=== PATIENT | male | born 1990 | race Caucasian/White ===

== ENCOUNTER 2017-01-23 12:31 | Emergency (ER) | payer SELFPAY ==
[2017-01-23] MEDS ORDERED: NORMAL SALINE 1000 ML 1,000 ML IV PRN (12:58)
[2017-01-23 13:05] LABS: ABSOLUTE EOSINOPHILS # (AUTO) 0.2 10^3/uL (0.0-0.6); ABSOLUTE LYMPHOCYTES (AUTO) 2.3 10^3/uL (0.5-4.7); ABSOLUTE MONOCYTES (AUTO) 0.7 10^3/uL (0.1-1.4); ABSOLUTE NEUT (AUTO) 3.4 10^3/uL (1.7-8.2); BASOPHILS % (AUTO) 0.5 % (0-2); EOSINOPHILS % (AUTO) 3.2 % (0-6); HEMATOCRIT 46.7 % (37.9-51.0); HEMOGLOBIN 16.2 g/dL (13.5-17.0); HGB HCT DIFFERENCE 1.9; LYMPHOCYTES % (AUTO) 34.5 % (13-45); MEAN CORPUSCULAR HEMOGLOBIN 33.1 pg (27.0-33.4); MEAN CORPUSCULAR HGB CONC 34.7 g/dL (32.0-36.0); MEAN CORPUSCULAR VOLUME 95 fl (80-97); MONOCYTES % (AUTO) 10.5 % (3-13); RED BLOOD COUNT 4.89 10^6/uL (4.35-5.55); RED CELL DISTRIBUTION WIDTH 14.8 % (11.5-14.0); SEGMENTED NEUTROPHILS % (AUTO) 51.3 % (42-78); WHITE BLOOD COUNT 6.6 10^3/uL (4.0-10.5)
[2017-01-23 13:25] LABS: ALANINE AMINOTRANSFERASE 243 U/L (21-72); ALBUMIN 5.3 g/dL (3.5-5.0); ALKALINE PHOSPHATASE 101 U/L (38-126); ANION GAP 13 (5-19); ASPARTATE AMINO TRANSFERASE 53 U/L (17-59); BILIRUBIN,DIRECT 0.4 mg/dL (0.0-0.4); BILIRUBIN,TOTAL 1.1 mg/dL (0.2-1.3); BLOOD UREA NITROGEN 10 mg/dL (7-20); CALCIUM 9.8 mg/dL (8.4-10.2); CARBON DIOXIDE 29 mmol/L (22-30); CHLORIDE 98 mmol/L (98-107); CREATININE RESULT 1.01 mg/dL (0.52-1.25); GLUCOSE 87 mg/dL (75-110); POTASSIUM 3.5 mmol/L (3.6-5.0); SODIUM 139.9 mmol/L (137-145); TOTAL PROTEIN 8.4 g/dL (6.3-8.2)
[2017-01-23 13:31] LABS: ALCOHOL < 10 mg/dL (NONE DETECTED)
[2017-01-23 13:38] LABS: LIPASE 340.7 U/L (23-300); MAGNESIUM 2.2 mg/dL (1.6-2.3)
[2017-01-23 13:51] LABS: APPEARANCE,URINE SLIGHTLY-CLOUDY; BILIRUBIN,URINE NEGATIVE (NEGATIVE); GLUCOSE, URINE NEGATIVE (NEGATIVE); KETONES,URINE NEGATIVE (NEGATIVE); LEUKOCYTE ESTERASE,URINE NEGATIVE (NEGATIVE); NITRITE,URINE NEGATIVE (NEGATIVE); PROTEIN,URINE NEGATIVE (NEGATIVE); URINE SPECIFIC GRAVITY 1.023
[2017-01-23 14:04] LABS: VALPROIC ACID < 10.0 ug/mL (50.0-120.0)
[2017-01-23 14:06] LABS: URINE BARBITURATES SCREEN NEGATIVE; URINE METHADONE SCREEN NEGATIVE; URINE OPIATES LOW UNCONFIRMED POSITIVE; URINE PHENCYCLIDINE SCREEN NEGATIVE
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
[2017-01-23] MEDS ORDERED: ONDANSETRON ODT 4 MG TAB (6 TAB/DSPK) PO PRN (15:46)
--- NOTE | 2017-01-23 15:51 | ER Document Report ---
ED General - General Chief Complaint: Altered Mental Status Stated Complaint: ALTERED MENTAL STATUS Time Seen by Provider: 01/23/17 12:57 - HPI Patient complains to provider of: Altered mental state Notes: Patient coming in for evaluation altered mental status. According EMS patient was found in a ditch for a possible drug overdose no intervention was given patient was transported to the ER. Upon my evaluation patient is awake however slurring his words no respiratory compromise. Patient does admit to using marijuana at 930 this morning. Patient denies any other issues. - Related Data Allergies/Adverse Reactions: No Known Allergies Allergy (Verified 01/23/17 14:01) Past Medical History - Social History Smoking Status: Current Every Day Smoker Frequency of alcohol use: Occasional Drug Abuse: Heroin, Methamphetamine Family History: Reviewed & Not Pertinent - Past Medical History Cardiac Medical History: Reports: Hx Hypertension Psychiatric Medical History: Reports: Hx Bipolar Disorder Past Surgical History: Reports: Hx Oral Surgery - Immunizations Hx Diphtheria, Pertussis, Tetanus Vaccination: Yes Review of Systems - Review of Systems -: Yes ROS unobtainable due to patient's medical condition - Difficult to obtain due to overdose Physical Exam - Vital signs Vitals: Resp Pulse Ox 18 95 01/23/17 12:42 01/23/17 12:42 Interpretation: Normal - General General appearance: Appears well, Alert - HEENT Head: Normocephalic. No: Atraumatic - Slight bruising to the left orthodox Eyes: Normal Pupils: PERRL - Respiratory Respiratory status: No respiratory distress Chest status: Nontender Breath sounds: Normal Chest palpation: Normal - Cardiovascular Rhythm: Regular Heart sounds: Normal auscultation Murmur: No - Abdominal Inspection: Normal Distension: No distension Bowel sounds: Normal Tenderness: Nontender Organomegaly: No organomegaly - Back Back: Normal, Nontender - Extremities General upper extremity: Normal inspection, Nontender, Normal color, Normal ROM , Normal temperature General lower extremity: Normal inspection, Nontender, Normal color, Normal ROM , Normal temperature, Normal weight bearing. No: Rosalva's sign - Neurological Neuro grossly intact: Yes Cognition: Confused Gris Coma Scale Eye Opening: Spontaneous Gris Coma Scale Verbal: Confused [place] Coma Scale Motor: Obeys Commands Gris Coma Scale Total: 14 Speech: Normal Motor strength normal: LUE, RUE, LLE, RLE Sensory: Normal - Psychological Associated symptoms: Normal affect, Normal mood - Skin Skin Temperature: Warm Skin Moisture: Dry Skin Color: Normal Course - Re-evaluation Re-evalutation: 01/23/17 15:49 After observation. Patient became agitated pulling out his IV. Family is now at bedside questioning about the patient patient denies lying in a ditch patient patient does admit to using heroin cocaine and amphetamines. Patient is laboratory studies do show signs of possible slight dehydration positive for multiple illicit substances including opiates and benzodiazepines marijuana cocaine and indeterminate for amphetamines. Patient does admit to taking meth. Patient was observed family at bedside after. Also patient requesting ahead CT of the patient has slight bruising to the left side of the head. This was performed CT scan was normal. Discussed with family agrees take patient home. Overdose instructions were given to the family members along with drug rehab options 01/23/17 15:51 - Vital Signs Vital signs: Temp Pulse Resp BP Pulse Ox 97.8 F 76 18 128/80 H 100 01/23/17 13:40 01/23/17 13:40 01/23/17 15:01 01/23/17 15:01 01/23/17 15:01 - Laboratory Result Diagrams: 01/23/17 12:45 01/23/17 12:45 Laboratory results interpreted by me: 01/23/17 01/23/17 01/23/17 12:45 12:45 12:45 RDW 14.8 H Potassium 3.5 L ALT 243 H Ammonia Total Protein 8.4 H Albumin 5.3 H Lipase 340.7 H Urine Urobilinogen Salicylates < 1.0 L Acetaminophen < 10 L Valproic Acid < 10.0 L 01/23/17 01/23/17 13:20 13:55 RDW Potassium ALT Ammonia < 8.7 L Total Protein Albumin Lipase Urine Urobilinogen 2.0 H Salicylates Acetaminophen Valproic Acid Critical Care Note - Critical Care Note Total time excluding time spent on procedures (mins): 35 Comments: Multiple evaluations for overdose Discharge - Discharge Clinical Impression: Altered mental status resolved, Polysubstance abuse Condition: Good Disposition: HOME, SELF-CARE Instructions: Instructions for Home Care Following a Drug Overdose ([facility]) Additional Instructions: He presented to the ER today for altered mental status. Your mental status has improved. I am concerned that your drug screen came back positive for multiple illicit drugs. Highly recommend that she look into drug rehab. Please drink plenty water Take Zofran as recommended
[2017-01-23 16:01] VITALS: BP 143/82
--- NOTE | 2017-01-24 10:37 | EKG REPORT ---
SEVERITY:- BORDERLINE ECG - SINUS RHYTHM BORDERLINE PROLONGED QT INTERVAL : Confirmed by: Monika Silverman 24-Jan-2017 10:36:42
--- NOTE | 2017-01-24 10:37 | EKG REPORT ---
SEVERITY:- NORMAL ECG - SINUS RHYTHM : Confirmed by: Monika Silverman 24-Jan-2017 10:36:49
== END 2017-01-23 16:01 | disposition home or self-care (01) ==
LOC: ER 12:31
DX: R41.82 Altered mental status, unspecified (principal); S00.93XA Contusion of unspecified part of head, initial encounter; F19.10 Other psychoactive substance abuse, uncomplicated; F17.200 Nicotine dependence, unspecified, uncomplicated; X58.XXXA Exposure to other specified factors, initial encounter; I10 Essential (primary) hypertension
CPT/HCPCS: 93005; 99291; 96360; 36415; 80307 ×4; 82140; 83690; 83735; 85025; 80053; 81001; 80164; 70450; 93010; J7030

== ENCOUNTER 2017-01-24 00:04 | Inpatient (IN) | payer SELFPAY ==
--- NOTE | 2017-01-24 00:52 | ER Document Report ---
ED Psych Disorder / Suicide - General Mode of Arrival: Ambulatory Information source: Patient TRAVEL OUTSIDE OF THE [place] IN LAST 30 DAYS: No - HPI Onset: Just prior to arrival Similar symptoms previously: Yes Recently seen / treated by doctor: Yes <VASQUEZ DAVIS - Last Filed: 01/24/17 04:59> <RUBÉN NIEVES - Last Filed: 01/29/17 12:21> - General Chief Complaint: Psych Problem Stated Complaint: PSYCH EVALUATION Time Seen by Provider: 01/24/17 00:50 Notes: Patient is a 26 year old male presenting to the ED for depression, SI, and paranoia. Patient presents with his step-mother who states the patient has told his mother he does not have his medications and he has been suicidal. Mother also noticed the patient has been drinking EtOH and has been abusing other substances such as marijuana, cocain, heroine, benzodiazepines, methamphetamines , and opiates. Patient has had lots of loss in his life including a , child , and having his other children removed from custody because of his mental state. Patient is supposed to be taking xanex, adderall, and others for his anxiety and depression. Patient was seen in this facility yesterday because he was brought in via EMS after being found in the ditch. Patient's toxicology tested positive for multiple substances at this visit as well. (VASQUEZ DAVIS) - Related Data Allergies/Adverse Reactions: No Known Allergies Allergy (Verified 01/23/17 14:01) Home Medications: Current Home Medications Dextroamphetamine/Amphetamine [Adderall 30 mg Tablet] 30 mg PO BID 01/24/17 [ History] Divalproex Sodium [Depakote ER 500 mg Tab.sr] 1,000 mg PO QHS 01/24/17 [History] Quetiapine Fumarate [Seroquel] 200 mg PO QHS 01/24/17 [History] Past Medical History - General Information source: Patient - Social History Smoking Status: Current Every Day Smoker Chew tobacco use (# tins/day): No Frequency of alcohol use: Heavy Drug Abuse: Heroin, Methamphetamine Family History: None Patient has suicidal ideation: No Patient has homicidal ideation: No - Past Medical History Cardiac Medical History: Reports: Hx Hypertension Psychiatric Medical History: Reports: Hx Bipolar Disorder Past Surgical History: Reports: Hx Oral Surgery - Immunizations Hx Diphtheria, Pertussis, Tetanus Vaccination: Yes <VASQUEZ DAVIS - Last Filed: 01/24/17 04:59> Review of Systems - Review of Systems Constitutional: No symptoms reported EENT: No symptoms reported Cardiovascular: No symptoms reported Respiratory: No symptoms reported Gastrointestinal: No symptoms reported Genitourinary: No symptoms reported Male Genitourinary: No symptoms reported Musculoskeletal: No symptoms reported Skin: No symptoms reported Hematologic/Lymphatic: No symptoms reported Neurological/Psychological: See HPI, Depression, Suicidal ideation -: Yes All other systems reviewed and negative <VASQUEZ DAVIS - Last Filed: 01/24/17 04:59> Physical Exam - Vital signs Interpretation: Normal <VASQUEZ DAVIS - Last Filed: 01/24/17 04:59> <JUAN CARLOS NIEVESMY - Last Filed: 01/29/17 12:21> - Vital signs Vitals: Temp Pulse Resp BP Pulse Ox 97.4 F 98 18 138/80 H 98 01/24/17 00:14 01/24/17 00:14 01/24/17 00:14 01/24/17 00:14 01/24/17 00:14 - Notes Notes: GENERAL: Somnolent and drowsy. Difficult to arouse except when he is sternal rubbed. Mild distress. HEAD: Normocephalic, atraumatic. EYES: Appear normal. Pupils equal, round, and reactive to light. ENT: Moist mucus membranes, tongue midline. NECK: Full range of motion. Supple. Trachea midline. LUNGS: Clear to auscultation bilaterally, no wheezes, rales, or rhonchi. No respiratory distress. HEART: Regular rate and rhythm. No murmurs, gallops, or rubs. ABDOMEN: Soft, non-tender. Non-distended. Normal bowel sounds. EXTREMITIES: Moves all 4 extremities spontaneously. Normal strength. No edema. NEUROLOGICAL: Alert and oriented x3. Mumbled speech. No focal neurological deficits. GSC 15. PSYCH: Normal affect, normal mood. SKIN: Warm, dry, normal turgor. No rashes or lesions noted. (VASQUEZ DAVIS) Course - Laboratory Result Diagrams: 01/24/17 00:40 01/24/17 00:40 - Consults Dr. Lord Time consulted: 04:00 <OLAYINKABRIENVASQUEZ - Last Filed: 01/24/17 04:59> - Laboratory Result Diagrams: 01/25/17 04:40 01/25/17 04:40 <RUBÉN NIEVES - Last Filed: 01/29/17 12:21> - Re-evaluation Re-evalutation: 01/24/17 04:17 Patient presents emergency department with altered mental status paranoia and suicidal ideation. Patient was seen and evaluated yesterday after being found in a ditch. He was sent home after family came workup was negative and he was deemed substance abuser. He moved from [place] recently but grew up in this area. According to the family members his at childbirth in 2012, child 02/2014, dog 02/2015, and his children were taken away from him in 2015 due to mental illness. He is a substance abuser with methamphetamines opiates and heroin as well as cocaine. Tonight his family states that they have never seen him like this before he did not make any sense could not wake him up and he called his mother and said he was hopeless and helpless and wanted to kill himself. On examination the patient is sleeping had to arouse him with sternal rub to keep him awake multiple times. He is satting well maintaining his own airway would converse with us temporarily. Narcan did not change his mental status. Patient underwent CT of the head and acute medical workup. CT of the head was negative reassessed multiple times patient sleeping unable to sternal rub maintaining his own airway and his O2 sat 97% on room air. Labs show no white count elevation H&H are stable mildly low potassium at 3.2 which is replaced. Glucose is 70 given an amp of D50 mildly elevated ALT at 187 urinalysis negative for infection but positive for opiates and benzodiazepines cocaine and marijuana. He is stable cardiac enzymes are negative. Not currently requiring acute intubation. Patient will need to be admitted to the ICU and placed on IVC. (RUBÉN NIEVES) - Vital Signs Vital signs: Temp Pulse Resp BP Pulse Ox 97.4 F 61 18 121/78 95 01/25/17 14:47 01/25/17 14:47 01/25/17 14:47 01/25/17 14:47 01/25/17 14:47 - Laboratory Laboratory results interpreted by me: 01/24/17 01/24/17 01/24/17 00:40 00:40 02:05 RBC 4.34 L RDW 14.6 H Seg Neutrophils % 37.9 L Lymphocytes % 45.7 H Potassium 3.2 L Carbon Dioxide 32 H Glucose 70 L ALT 187 H Urine Urobilinogen 4.0 H Salicylates < 1.0 L Acetaminophen < 10 L - Consults Dr. Lord Reason for consultation: 01/24/17 04:[address] Lord, he will call back. 01/24/17 04:[address] Lord, he accepts the patient for admission to [facility]. (VASQUEZ DAVIS) Critical Care Note - Critical Care Note Total time excluding time spent on procedures (mins): 60 <RUBÉN NIEVES - Last Filed: 01/29/17 12:21> Discharge <VASQUEZ DAVIS - Last Filed: 01/24/17 04:59> - Discharge Unit Admitted: ICU <RUBÉN NIEVES - Last Filed: 01/29/17 12:21> - Discharge Clinical Impression: polypharmacy substance abuse, Suicidal ideation Altered mental status Qualifiers: Altered mental status type: unspecified Qualified Code(s): R41.82 - Altered mental status, unspecified Condition: Stable Disposition: ADMITTED INPATIENT Scribe Attestation: 01/24/17 04:17 I personally performed the services described in the documentation reviewed the documentation recorded by my scribe in my presence and it accurately and completely records my words and actions (RUBÉN NIEVES) Scribe Documentation - Scribe Written by Scribe:: Moira Wild 01/24/17 4:56 acting as scribe for :: Gasper <VASQUEZ DAVIS - Last Filed: 01/24/17 04:59>
[2017-01-24 01:04] LABS: ABSOLUTE EOSINOPHILS # (AUTO) 0.3 10^3/uL (0.0-0.6); ABSOLUTE LYMPHOCYTES (AUTO) 2.6 10^3/uL (0.5-4.7); ABSOLUTE MONOCYTES (AUTO) 0.6 10^3/uL (0.1-1.4); ABSOLUTE NEUT (AUTO) 2.2 10^3/uL (1.7-8.2); BASOPHILS % (AUTO) 0.7 % (0-2); EOSINOPHILS % (AUTO) 4.8 % (0-6); HEMATOCRIT 41.4 % (37.9-51.0); HEMOGLOBIN 14.5 g/dL (13.5-17.0); HGB HCT DIFFERENCE 2.1; LYMPHOCYTES % (AUTO) 45.7 % (13-45); MEAN CORPUSCULAR HEMOGLOBIN 33.4 pg (27.0-33.4); MEAN CORPUSCULAR VOLUME 95 fl (80-97); MONOCYTES % (AUTO) 10.9 % (3-13); RED BLOOD COUNT 4.34 10^6/uL (4.35-5.55); RED CELL DISTRIBUTION WIDTH 14.6 % (11.5-14.0); SEGMENTED NEUTROPHILS % (AUTO) 37.9 % (42-78); WHITE BLOOD COUNT 5.8 10^3/uL (4.0-10.5)
[2017-01-24] MEDS ORDERED: NALOXONE HCL INJ 2 MG/2 ML DISP.SYRIN ONE (01:11)
[2017-01-24 01:28] LABS: ALANINE AMINOTRANSFERASE 187 U/L (21-72); ALBUMIN 4.1 g/dL (3.5-5.0); ALKALINE PHOSPHATASE 77 U/L (38-126); ANION GAP 8 (5-19); ASPARTATE AMINO TRANSFERASE 56 U/L (17-59); BILIRUBIN,DIRECT 0.4 mg/dL (0.0-0.4); BILIRUBIN,TOTAL 1.1 mg/dL (0.2-1.3); BLOOD UREA NITROGEN 9 mg/dL (7-20); CALCIUM 8.9 mg/dL (8.4-10.2); CARBON DIOXIDE 32 mmol/L (22-30); CHLORIDE 101 mmol/L (98-107); GLUCOSE 70 mg/dL (75-110); POTASSIUM 3.2 mmol/L (3.6-5.0); TOTAL PROTEIN 6.7 g/dL (6.3-8.2)
[2017-01-24 01:33] LABS: ALCOHOL < 10 mg/dL (NONE DETECTED)
[2017-01-24] MEDS ORDERED: NALOXONE HCL INJ 2 MG/2 ML DISP.SYRIN IV ONE (01:34)
--- NOTE | 2017-01-24 02:12 | RADIOLOGY REPORT (SQ) ---
EXAM DESCRIPTION: CT HEAD WITHOUT COMPLETED DATE/TIME: 01/24/2017 1:48 am REASON FOR STUDY: ams COMPARISON: None. 01/23/2017. TECHNIQUE: Axial images acquired through the brain without intravenous contrast. Images reviewed wi th bone, brain and subdural windows. Images stored on PACS. All CT scanners at this facility use dose modulation, iterative reconstruction, and/or weight based d osing when appropriate to reduce radiation dose to as low as reasonably achievable (ALARA). [facility]: Dose Right [facility]: CareDose [facility]: Dose Right [facility]: Teradose 4D [facility]: Smart [employer] RADIATION DOSE: Up-to-date CT equipment and radiation dose reduction techniques were employed. CTDIv ol: 55.2 - 55.3 mGy. DLP: 2080 mGy-cm. mGy. LIMITATIONS: None. FINDINGS: VENTRICLES: Normal size and contour. CEREBRUM: No masses. No hemorrhage. No midline shift. Normal mays/white matter differentiation. N o evidence for acute infarction. CEREBELLUM: No masses. No hemorrhage. No alteration of density. No evidence for acute infarction. EXTRAAXIAL SPACES: No fluid collections. No masses. ORBITS AND GLOBE: No intra- or extraconal masses. Normal contour of globe without masses. CALVARIUM: No fracture. PARANASAL SINUSES: 2.0 cm left rib maxillary retention cyst -mucocele. SOFT TISSUES: No mass or hematoma. OTHER: No other significant finding. IMPRESSION: No acute findings. TECHNICAL DOCUMENTATION: JOB ID: [id number] Quality ID # [id number]: Final reports with documentation of one or more dose reduction techniques (e.g., Au tomated exposure control, adjustment of the mA and/or kV according to patient size, use of iterative reconstruction technique) 2010 [employer]- All Rights Reserved
[2017-01-24 02:23] LABS: APPEARANCE,URINE CLEAR; BILIRUBIN,URINE NEGATIVE (NEGATIVE); GLUCOSE, URINE NEGATIVE (NEGATIVE); KETONES,URINE NEGATIVE (NEGATIVE); LEUKOCYTE ESTERASE,URINE NEGATIVE (NEGATIVE); NITRITE,URINE NEGATIVE (NEGATIVE); PROTEIN,URINE NEGATIVE (NEGATIVE)
[2017-01-24 02:38] LABS: URINE BARBITURATES SCREEN NEGATIVE; URINE METHADONE SCREEN NEGATIVE; URINE OPIATES LOW UNCONFIRMED POSITIVE; URINE PHENCYCLIDINE SCREEN NEGATIVE
[2017-01-24] MEDS ORDERED: DEXTROSE 50%-WATER 25 GM/50 ML DISP.SYRIN IV ONE (03:15)
[2017-01-24 05:27] LABS: ADD ON TESTING BLD IN LAB ACKNOWLEDGE
[2017-01-24] MEDS ORDERED: DEXTROSE 50%-WATER 25 GM/50 ML DISP.SYRIN IV PRN ×2 (05:39)
[2017-01-24] MEDS ORDERED: DEXTROSE 40% GEL 15 GM TUBE PO PRN ×2 (05:39)
[2017-01-24] MEDS ORDERED: ACETAMINOPHEN 650 MG SUPP.RECT PR PRN (05:39)
[2017-01-24] MEDS ORDERED: GLUCAGON,HUMAN RECOMB 1 MG INJ SUBCUT PRN (05:39)
[2017-01-24] MEDS ORDERED: THIAMINE HCL 100 MG in NORMAL SALINE 50 ML IV ONE (05:39)
[2017-01-24] MEDS ORDERED: PROMETHAZINE HCL 25 MG SUPP.RECT PR PRN (05:44)
[2017-01-24] MEDS: POTASSI CL 20 MEQ/50 ML RIDER 50 ML IV SCH ×2 (05:45→06:37)
[2017-01-24 06:04] LABS: VENOUS BLOOD BASE EXCESS 3.7 mmol/L; VENOUS BLOOD PCO2 63.3 mmHg (35-63); VENOUS BLOOD PH 7.32 (7.30-7.42)
--- NOTE | 2017-01-24 06:08 | PDOC H&P ---
History of Present Illness Admission Date/PCP: 01/24/17 05:04 Primary care provider none Patient complains of: Suicidal ideation History of Present Illness: MARCUS ROGERS JR is a 26 year old male with reported underlying bipolar disorder , seen in the emergency room approximately 24 hours earlier after being found by EMS in a ditch, discharged home with family, brought back to the emergency room by stepmother after phoning his mother, who lives out of state, stating that he felt like killing himself. Patient has been discussed with emergency room physician who evaluated the patient. Patient is quite somnolent, although maintaining airway well, never completely awakening to sternal rub or trapezius pinch, and is able to provide no history whatsoever in terms of acute or chronic events, review of systems, personal habits, family history, etc. No friends or family are present. No old inpatient records available for review. Extensive documentation by emergency room physician is reviewed. Patient reportedly abusing multiple substances, including alcohol, marijuana, cocaine, heroin, methamphetamines, opiates, and benzodiazepine. . Dictation via voice recognition software. Laboratory results are listed in [employer] and are reviewed. X-ray summary results are listed below, with full report(s) reviewed. . EKG reviewed and compared to prior tracing from the day previous. Social history/personal habits: See history and present illness. No further information available this point in time. No known drug allergies. Home medications initially autopopulated into [facility] may not accurately reflect patient's true medications, dosages, and/or frequencies. technical clerk to reconcile medications. Unfortunately, patient not able to provide any information related to medications/dosages/frequencies. REVIEW OF SYSTEMS: See history and present illness. No further information available this point in time. PHYSICAL EXAMINATION: Patient listed is 5 feet tall, but he appears taller than this. Order has been written to please repeat his height and weight as soon as possible. 88.8 kg. Blood pressure 110/56. Pulse 74 and regular. 100% saturation on room air. Respirations are 16 and unlabored. Temperature 97.6. Well-nourished well-developed male quite somnolent, although maintaining airway well. Withdraws to pain with sternal rub and trapezius pinch. Does not completely awaken to these maneuvers. Skin is warm and dry. No grossly obvious evidence of rash in areas of skin examined. No subcutaneous nodules palpated. Tattoos, right upper extremity. ENT: Hearing cannot be adequately evaluated due to his current status. No acharya sign. Eyes: No scleral icterus. Pupils equal and reactive to light at 5 mm. [place] conjunctivae. No raccoon eyes. Neck is nontender to palpation. Midline trachea. No palpable thyroid nodule mass enlargement or tenderness. Lymphatic: No palpable cervical or clavicular nodes. Neck and lymphatic exams limited by patient body habitus. Psychiatric: Cannot be adequately evaluated due to his current status. Lungs: Auscultation reveals clear and equal breath sounds bilaterally. No use of accessory respiratory muscles. Cardiovascular: Heart regular rate and rhythm, without gallop murmur or rub. No carotid or abdominal aortic bruits. No ankle or pedal edema. Palpable dorsalis pedis pulses. Abdomen:soft slightly distended nontender with positive bowel sounds. Unable to adequately evaluate abdomen for masses or organomegaly due to distention. Extremities: Feet are warm and dry. No calf tenderness to compression. No grossly obvious visual evidence of upper or lower extremity swelling. Gentle manipulation of lower extremities fails to reveal any obvious evidence of injury or instability to knees hips or ankles. Neurologic: Patellar reflexes absent. Absent Babinski. Light touch cannot be adequately evaluated due to his current status.. No rigidity. No nystagmus. Gris Coma Scale of 6, with eyes and verbal response 1 each, and motor 4. Past Medical History Past Medical History: Patient unable to provide any information at this time. Information from hospital records. Cardiac Medical History: Reports: Hypertension Psychiatric Medical History: Reports: Bipolar Disorder Past Surgical History Past Surgical History: Patient unable to provide any information at this point in time. Information from hospital records. Social History Information Source: Emergency Med Personnel, ON LICENSE OF [facility] Records Smoking Status: Current Every Day Smoker Frequency of Alcohol Use: Heavy - Reported recent heavy use Hx Recreational Drug Use: Yes - Benzodiazepine Drugs: Cocaine, Heroin, Marijuana, Other - Methamphetamines - Advance Directive Resuscitation Status: Full Code Surrogate healthcare decision maker:: Uncertain at this point in time. Family History Family History: None Parental Family History Reviewed: No - Patient unable to provide any information. Children Family History Reviewed: No - Patient unable to provide any information. Sibling(s) Family History Reviewed.: No - Patient unable to provide any information. Medication/Allergy Home Medications: Dextroamphetamine/Amphetamine [Adderall 30 mg Tablet] 30 mg PO BID 08/09/17 Divalproex Sodium [Depakote ER 500 mg Tab.sr] 1,000 mg PO QHS 01/24/17 Quetiapine Fumarate [Seroquel] 200 mg PO QHS 01/24/17 Allergies/Adverse Reactions: No Known Allergies Allergy (Verified 01/23/17 14:01) Physical Exam Vital Signs: Temp Pulse Resp BP Pulse Ox 97.4 F 98 18 138/80 H 98 01/24/17 00:14 01/24/17 00:14 01/24/17 00:14 01/24/17 00:14 01/24/17 00:14 Results Impressions: Head CT 01/24/17 01:33 IMPRESSION: No acute findings. Assessment & Plan - Diagnosis (1) Acute encephalopathy Is this a current diagnosis for this admission?: YesPlan: Should clear with time and treatment. (2) DVT prophylaxis Is this a current diagnosis for this admission?: Yes (3) Hypokalemia Is this a current diagnosis for this admission?: YesPlan: Potassium supplement, with follow-up chemistry. (4) Polysubstance abuse Is this a current diagnosis for this admission?: YesPlan: Intensive care unit admission. Seizure precautions. Supportive care. Knee high SCDs for DVT prophylaxis, along with subcutaneous Lovenox. Time spent in evaluation and management of patient: 64 critical-care minutes. (5) Suicidal ideation Is this a current diagnosis for this admission?: YesPlan: Psychiatric consult. IVC papers have been drawn up by emergency room physician. Suicide precautions. - Time Critical Time spent with patient: 35 or more minutes - Inpatient Certification Based on my medical assessment, after consideration of the patient's comorbidities, presenting symptoms, or acuity I expect that the services needed warrant INPATIENT care.: Yes I certify that my determination is in accordance with my understanding of Medicare's requirements for reasonable and necessary INPATIENT services [42 CFR 412.3e].: Yes Medical Necessity: Significant Comorbidiites Make Outpatient Treatment Too Risky , Need Close Monitoring Due to Risk of Patient Decompensation, Need For IV Fluids, Need For Continuous Telemetry Monitoring, Risk of Complication if Not Cared For in Hospital, Risk of Diagnosis Which Will Require Inpatient Eval/Care/ Monitoring Post Hospital Care: D/C or Transfer Summary
[2017-01-24 06:40] LABS: ANION GAP 7 (5-19); BLOOD UREA NITROGEN 11 mg/dL (7-20); CARBON DIOXIDE 30 mmol/L (22-30); CHLORIDE 103 mmol/L (98-107); CREATINE KINASE 274 U/L (55-170); CREATININE RESULT 0.97 mg/dL (0.52-1.25); GLUCOSE 96 mg/dL (75-110); POTASSIUM 4.1 mmol/L (3.6-5.0); SODIUM 140.2 mmol/L (137-145)
[2017-01-24 06:52] LABS: CREATINE KINASE MB 2.43 ng/mL (<4.55)
[2017-01-24 06:53] LABS: TROPONIN I < 0.012 ng/mL
--- NOTE | 2017-01-24 10:37 | EKG REPORT ---
SEVERITY:- NORMAL ECG - SINUS RHYTHM : Confirmed by: Monika Silverman 24-Jan-2017 10:36:21
[2017-01-24] MEDS: THIAMINE HCL 100 MG TABLET PO SCH (12:12)
[2017-01-24] MEDS: FAMOTIDINE INJ/PF 20 MG/2 ML SDV IV SCH ×2 (12:15→21:46)
[2017-01-24] MEDS: ENOXAPARIN SODIUM INJ 40 MG/0.4 ML DISP.SYRIN SUBCUT SCH (12:17)
[2017-01-24] MEDS: NORMAL SALINE 1000 ML 1,000 ML IV PRN ×2 (14:02→21:47)
--- NOTE | 2017-01-24 14:50 | PSYCHOLOGICAL NOTE ---
Psych Note - Psych Note Psych Note: Patient is a 26 year old male who has been admitted to [facility] for encephalopathy. Note, patient had 2 episodes in which he presented to the ER yesterday, the first he was found unresponsive in a ditch. Patient was determined to be under the influence of multiple drugs upon arrival , per his toxicology, to include opiates, cocaine, benzodiazepines, and marijuana. Patient was discharged once A&O with noncritical labs and vitals. Patient reportedly returned to his place of residence via his stepmother, and later returned after he reported to his mother suicidal ideations. It was during this second episode that the patient was admitted to ICU. Patient at the time of this consultation, was mostly noncommunicative and will be evaluated later. Stepmother, Lorene Beard states the patient only moved to [place] 2- 3 weeks ago, from [place] of state. She states he has suffered tremendous loss, and she and her (patient's father) were unaware of the extent of his drug abuse. She states the patient's during childbirth, and he fell into depression and reportedly started using drugs. She reports CPS removed his child as a result. Stepmother reports she also found out that he friend 2 weeks prior of an overdose. She reports she was called to the hospital yesterday after EMS brought him in, and provided the patient transportation home. She states she later received contact that the patient was experiencing suicidal ideations. She reports She provided patient's father's number, Brice . Will attempt to evaluate at a later time. Thank you kindly for this consultation. Will track.
--- NOTE | 2017-01-24 15:03 | PDOC PROGRESS REPORT ---
Subjective Progress Note for:: 01/24/17 Subjective:: Patient is alert and responsive at the time of my visit. He denies suicidal ideation at this time. He denies ever having suicidal ideation even though his family member states that he expressed suicidal thoughts prior to presentation. Physical Exam Vital Signs: Temp Pulse Resp BP Pulse Ox 97.2 F 74 14 111/68 98 01/24/17 12:00 01/24/17 14:00 01/24/17 14:00 01/24/17 14:00 01/24/17 14:00 Intake & Output 01/23/17 01/24/17 01/25/17 06:59 06:59 06:59 Output Total 875 Balance -875 GENERAL: No acute distress HEENT: Conjunctiva clear, nonicteric, moist mucous membranes, no JVD, midline trachea RESPIRATORY: Clear to auscultation bilaterally, no wheezes, no rhonchi CARDIAC: Regular rate and rhythm, no murmurs/gallops/rubs ABDOMEN: Soft, nondistended, nontender, positive bowel sounds, no rebound, no guarding EXTREMETIES: No edema, cyanosis, clubbing NEUROLOGIC: Alert, oriented to person/place/time, CN's grossly intact, no focal deficits SKIN: No rash, wounds PSYCH: Normal mood, normal affect Results Laboratory Results: 01/24/17 06:10 01/24/17 01/24/17 01/24/17 05:57 06:10 06:10 VBG pH 7.32 VBG pCO2 63.3 H VBG HCO3 32.0 VBG Base Excess 3.7 Sodium 140.2 Potassium 4.1 Chloride 103 Carbon Dioxide 30 Anion Gap 7 BUN 11 Creatinine 0.97 Est GFR ( Amer) > 60 Est GFR (Non-Af Amer) > 60 Glucose 96 Calcium 9.0 Ammonia < 8.7 L 01/24/17 01/24/17 06:10 06:10 Creatine Kinase 274 H CK-MB (CK-2) 2.43 Troponin I < 0.012 Impressions: Head CT 01/24/17 01:33 IMPRESSION: No acute findings. Assessment & Plan - Diagnosis (1) Acute encephalopathy Is this a current diagnosis for this admission?: YesPlan: Resolved. Likely secondary to polysubstance ingestion/overdose. (2) Polysubstance abuse Is this a current diagnosis for this admission?: Yes (3) Suicidal ideation Is this a current diagnosis for this admission?: YesPlan: Continue involuntary commitment. Psychology to evaluate. - Time Time Spent with patient: 25-34 minutes
[2017-01-24] MEDS ORDERED: NORMAL SALINE 1000 ML 1,000 ML with THIAMINE HCL 100 MG, MVI, ADULT NO.1 WITH VIT K 10 ... IV SCH ×4 (18:00)
[2017-01-24] MEDS: ALPRAZOLAM 0.5 MG TABLET PO SCH (18:28)
[2017-01-24] MEDS ORDERED: QUETIAPINE FUMARATE 100 MG TABLET PO SCH (22:00)
[2017-01-24] MEDS ORDERED: DIVALPROEX SODIUM 500 MG TAB.SR.24H PO SCH (22:00)
[2017-01-25] MEDS: ALPRAZOLAM 0.5 MG TABLET PO SCH ×2 (03:11→12:58)
[2017-01-25 05:25] LABS: ABSOLUTE EOSINOPHILS # (AUTO) 0.2 10^3/uL (0.0-0.6); ABSOLUTE LYMPHOCYTES (AUTO) 2.1 10^3/uL (0.5-4.7); ABSOLUTE MONOCYTES (AUTO) 0.4 10^3/uL (0.1-1.4); ABSOLUTE NEUT (AUTO) 1.2 10^3/uL (1.7-8.2); BASOPHILS % (AUTO) 0.7 % (0-2); EOSINOPHILS % (AUTO) 4.8 % (0-6); HEMATOCRIT 39.5 % (37.9-51.0); HGB HCT DIFFERENCE 2.5; LYMPHOCYTES % (AUTO) 53.9 % (13-45); MEAN CORPUSCULAR HEMOGLOBIN 33.9 pg (27.0-33.4); MEAN CORPUSCULAR HGB CONC 35.4 g/dL (32.0-36.0); MEAN CORPUSCULAR VOLUME 96 fl (80-97); MONOCYTES % (AUTO) 9.8 % (3-13); RED BLOOD COUNT 4.13 10^6/uL (4.35-5.55); RED CELL DISTRIBUTION WIDTH 14.5 % (11.5-14.0); SEGMENTED NEUTROPHILS % (AUTO) 30.8 % (42-78); WHITE BLOOD COUNT 3.9 10^3/uL (4.0-10.5)
[2017-01-25 06:08] LABS: ALANINE AMINOTRANSFERASE 190 U/L (21-72); ALBUMIN 3.1 g/dL (3.5-5.0); ALKALINE PHOSPHATASE 80 U/L (38-126); ANION GAP 6 (5-19); ASPARTATE AMINO TRANSFERASE 83 U/L (17-59); BILIRUBIN,DIRECT 0.4 mg/dL (0.0-0.4); BILIRUBIN,TOTAL 0.8 mg/dL (0.2-1.3); BLOOD UREA NITROGEN 6 mg/dL (7-20); CALCIUM 8.4 mg/dL (8.4-10.2); CARBON DIOXIDE 25 mmol/L (22-30); CHLORIDE 111 mmol/L (98-107); CREATININE RESULT 0.81 mg/dL (0.52-1.25); GLUCOSE 87 mg/dL (75-110); POTASSIUM 3.9 mmol/L (3.6-5.0); SODIUM 141.6 mmol/L (137-145); TOTAL PROTEIN 5.4 g/dL (6.3-8.2)
[2017-01-25 08:57] VITALS: BP 121/78
[2017-01-25] MEDS: THIAMINE HCL 100 MG TABLET PO SCH (12:54)
[2017-01-25] MEDS: FAMOTIDINE INJ/PF 20 MG/2 ML SDV IV SCH (12:54)
[2017-01-25] MEDS: ENOXAPARIN SODIUM INJ 40 MG/0.4 ML DISP.SYRIN SUBCUT SCH (12:55)
[2017-01-25] MEDS ORDERED: ALPRAZOLAM 0.5 MG TABLET PO ONE (14:45)
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
--- NOTE | 2017-01-25 16:57 | PDOC DISCHARGE SUMMARY ---
General - Admit/Disc Date/PCP Admission Date/Primary Care Provider: 01/24/17 05:39 Discharge Date: 01/25/17 - Discharge Diagnosis (1) Acute encephalopathy Is this a current diagnosis for this admission?: Yes (2) Polysubstance abuse Is this a current diagnosis for this admission?: Yes (3) Suicidal ideation Is this a current diagnosis for this admission?: Yes - Additional Information Resuscitation Status: Full Code Discharge Diet: Regular Discharge Activity: Activity As Tolerated Home Medications: Dextroamphetamine/Amphetamine [Adderall 30 mg Tablet] 30 mg PO BID 01/24/17 Divalproex Sodium [Depakote ER 500 mg Tab.sr] 1,000 mg PO QHS 01/24/17 Quetiapine Fumarate [Seroquel] 200 mg PO QHS 01/24/17 History of Present Illness Patient complains of: Suicidal ideation History of Present Illness: MARCUS ROGERS JR is a 26 year old male with reported underlying bipolar disorder , seen in the emergency room approximately 24 hours earlier after being found by EMS in a ditch, discharged home with family, brought back to the emergency room by stepmother after phoning his mother, who lives out of state, stating that he felt like killing himself. Patient has been discussed with emergency room physician who evaluated the patient. Patient is quite somnolent, although maintaining airway well, never completely awakening to sternal rub or trapezius pinch, and is able to provide no history whatsoever in terms of acute or chronic events, review of systems, personal habits, family history, etc. No friends or family are present. No old inpatient records available for review. Extensive documentation by emergency room physician is reviewed. Patient reportedly abusing multiple substances, including alcohol, marijuana, cocaine, heroin, methamphetamines, opiates, and benzodiazepine. Hospital Course Hospital Course: Patient admitted for encephalopathy likely secondary to polysubstance overdose and expression of suicidal ideation to a family member. Patient was monitored until polysubstance overdose resolved. He was medically stable and alert and oriented at time of discharge. He was evaluated by psychology and deemed not to be a threat to himself or others. Recommendation was to give patient information for voluntary outpatient substance abuse treatment and recent IVC. Physical Exam Vital Signs: Temp Pulse Resp BP Pulse Ox 97.4 F 61 18 121/78 95 01/25/17 14:47 01/25/17 14:47 01/25/17 14:47 01/25/17 14:47 01/25/17 14:47 Intake & Output 01/24/17 01/25/17 01/26/17 06:59 06:59 06:59 Intake Total 477 720 Output Total 1200 1250 Balance -723 530 GENERAL: No acute distress HEENT: Conjunctiva clear, nonicteric, moist mucous membranes, no JVD, midline trachea RESPIRATORY: Clear to auscultation bilaterally, no wheezes, no rhonchi CARDIAC: Regular rate and rhythm, no murmurs/gallops/rubs ABDOMEN: Soft, nondistended, nontender, positive bowel sounds, no rebound, no guarding EXTREMETIES: No edema, cyanosis, clubbing NEUROLOGIC: Alert, oriented to person/place/time, CN's grossly intact, no focal deficits SKIN: No rash, wounds PSYCH: Normal mood, normal affect Results Laboratory Results: 01/25/17 04:40 01/25/17 04:40 01/25/17 01/25/17 04:40 04:40 WBC 3.9 L RBC 4.13 L Hgb 14.0 Hct 39.5 MCV 96 MCH 33.9 H MCHC 35.4 RDW 14.5 H Plt Count 233 Seg Neutrophils % 30.8 L Lymphocytes % 53.9 H Monocytes % 9.8 Eosinophils % 4.8 Basophils % 0.7 Absolute Neutrophils 1.2 L Absolute Lymphocytes 2.1 Absolute Monocytes 0.4 Absolute Eosinophils 0.2 Absolute Basophils 0.0 Sodium 141.6 Potassium 3.9 Chloride 111 H Carbon Dioxide 25 Anion Gap 6 BUN 6 L Creatinine 0.81 Est GFR ( Amer) > 60 Est GFR (Non-Af Amer) > 60 Glucose 87 Calcium 8.4 Total Bilirubin 0.8 AST 83 H ALT 190 H Alkaline Phosphatase 80 Total Protein 5.4 L Albumin 3.1 L 01/24/17 01/24/17 06:10 06:10 Creatine Kinase 274 H CK-MB (CK-2) 2.43 Troponin I < 0.012 Labs- Entire Visit 01/24/17 01/24/17 01/24/17 00:40 00:40 00:40 WBC 5.8 RBC 4.34 L Hgb 14.5 Hct 41.4 MCV 95 MCH 33.4 MCHC 35.0 RDW 14.6 H Plt Count 291 Seg Neutrophils % 37.9 L Lymphocytes % 45.7 H Monocytes % 10.9 Eosinophils % 4.8 Basophils % 0.7 Absolute Neutrophils 2.2 Absolute Lymphocytes 2.6 Absolute Monocytes 0.6 Absolute Eosinophils 0.3 Absolute Basophils 0.0 VBG pH VBG pCO2 VBG HCO3 VBG Base Excess Sodium 141.0 Potassium 3.2 L Chloride 101 Carbon Dioxide 32 H Anion Gap 8 BUN 9 Creatinine 1.00 Est GFR ( Amer) > 60 Est GFR (Non-Af Amer) > 60 Glucose 70 L POC Glucose Calcium 8.9 Magnesium 2.0 Total Bilirubin 1.1 Direct Bilirubin 0.4 Indirect Bilirubin Not Reportable Neonat Total Bilirubin Not Reportable AST 56 ALT 187 H Alkaline Phosphatase 77 Ammonia Creatine Kinase CK-MB (CK-2) Troponin I Total Protein 6.7 Albumin 4.1 TSH Urine Color Urine Appearance Urine pH Ur Specific [place] Urine Protein Urine Glucose (UA) Urine Ketones Urine Blood Urine Nitrite Urine Bilirubin Urine Urobilinogen Ur Leukocyte Esterase Urine WBC (Auto) U Hyaline Cast (Auto) Urine Mucus (Auto) Urine Ascorbic Acid Salicylates < 1.0 L Urine Opiates Screen Urine Methadone Screen Acetaminophen < 10 L Ur Barbiturates Screen Ur Phencyclidine Scrn Ur Amphetamines Screen U Benzodiazepines Scrn Urine Cocaine Screen U Marijuana (THC) Screen Serum Alcohol < 10 01/24/17 01/24/17 01/24/17 00:40 02:05 02:05 WBC RBC Hgb Hct MCV MCH MCHC RDW Plt Count Seg Neutrophils % Lymphocytes % Monocytes % Eosinophils % Basophils % Absolute Neutrophils Absolute Lymphocytes Absolute Monocytes Absolute Eosinophils Absolute Basophils VBG pH VBG pCO2 VBG HCO3 VBG Base Excess Sodium Potassium Chloride Carbon Dioxide Anion Gap BUN Creatinine Est GFR ( Amer) Est GFR (Non-Af Amer) Glucose POC Glucose Calcium Magnesium Total Bilirubin Direct Bilirubin Indirect Bilirubin Neonat Total Bilirubin AST ALT Alkaline Phosphatase Ammonia Creatine Kinase CK-MB (CK-2) Troponin I Total Protein Albumin TSH 0.54 Urine Color YELLOW Urine Appearance CLEAR Urine pH 6.0 Ur Specific [place] 1.010 Urine Protein NEGATIVE Urine Glucose (UA) NEGATIVE Urine Ketones NEGATIVE Urine Blood NEGATIVE Urine Nitrite NEGATIVE Urine Bilirubin NEGATIVE Urine Urobilinogen 4.0 H Ur Leukocyte Esterase NEGATIVE Urine WBC (Auto) 1 U Hyaline Cast (Auto) 1 Urine Mucus (Auto) RARE Urine Ascorbic Acid NEGATIVE Salicylates Urine Opiates Screen UNCONFIRMED POSITIVE Urine Methadone Screen NEGATIVE Acetaminophen Ur Barbiturates Screen NEGATIVE Ur Phencyclidine Scrn NEGATIVE Ur Amphetamines Screen U Benzodiazepines Scrn UNCONFIRMED POSITIVE Urine Cocaine Screen UNCONFIRMED POSITIVE U Marijuana (THC) Screen UNCONFIRMED POSITIVE Serum Alcohol 01/24/17 01/24/17 01/24/17 05:11 05:57 06:10 WBC RBC Hgb Hct MCV MCH MCHC RDW Plt Count Seg Neutrophils % Lymphocytes % Monocytes % Eosinophils % Basophils % Absolute Neutrophils Absolute Lymphocytes Absolute Monocytes Absolute Eosinophils Absolute Basophils VBG pH 7.32 VBG pCO2 63.3 H VBG HCO3 32.0 VBG Base Excess 3.7 Sodium Potassium Chloride Carbon Dioxide Anion Gap BUN Creatinine Est GFR ( Amer) Est GFR (Non-Af Amer) Glucose POC Glucose 82 Calcium Magnesium Total Bilirubin Direct Bilirubin Indirect Bilirubin Neonat Total Bilirubin AST ALT Alkaline Phosphatase Ammonia < 8.7 L Creatine Kinase CK-MB (CK-2) Troponin I Total Protein Albumin TSH Urine Color Urine Appearance Urine pH Ur Specific [place] Urine Protein Urine Glucose (UA) Urine Ketones Urine Blood Urine Nitrite Urine Bilirubin Urine Urobilinogen Ur Leukocyte Esterase Urine WBC (Auto) U Hyaline Cast (Auto) Urine Mucus (Auto) Urine Ascorbic Acid Salicylates Urine Opiates Screen Urine Methadone Screen Acetaminophen Ur Barbiturates Screen Ur Phencyclidine Scrn Ur Amphetamines Screen U Benzodiazepines Scrn Urine Cocaine Screen U Marijuana (THC) Screen Serum Alcohol 01/24/17 01/24/17 01/25/17 06:10 06:10 04:40 WBC 3.9 L RBC 4.13 L Hgb 14.0 Hct 39.5 MCV 96 MCH 33.9 H MCHC 35.4 RDW 14.5 H Plt Count 233 Seg Neutrophils % 30.8 L Lymphocytes % 53.9 H Monocytes % 9.8 Eosinophils % 4.8 Basophils % 0.7 Absolute Neutrophils 1.2 L Absolute Lymphocytes 2.1 Absolute Monocytes 0.4 Absolute Eosinophils 0.2 Absolute Basophils 0.0 VBG pH VBG pCO2 VBG HCO3 VBG Base Excess Sodium 140.2 Potassium 4.1 Chloride 103 Carbon Dioxide 30 Anion Gap 7 BUN 11 Creatinine 0.97 Est GFR ( Amer) > 60 Est GFR (Non-Af Amer) > 60 Glucose 96 POC Glucose Calcium 9.0 Magnesium Total Bilirubin Direct Bilirubin Indirect Bilirubin Neonat Total Bilirubin AST ALT Alkaline Phosphatase Ammonia Creatine Kinase 274 H CK-MB (CK-2) 2.43 Troponin I < 0.012 Total Protein Albumin TSH Urine Color Urine Appearance Urine pH Ur Specific [place] Urine Protein Urine Glucose (UA) Urine Ketones Urine Blood Urine Nitrite Urine Bilirubin Urine Urobilinogen Ur Leukocyte Esterase Urine WBC (Auto) U Hyaline Cast (Auto) Urine Mucus (Auto) Urine Ascorbic Acid Salicylates Urine Opiates Screen Urine Methadone Screen Acetaminophen Ur Barbiturates Screen Ur Phencyclidine Scrn Ur Amphetamines Screen U Benzodiazepines Scrn Urine Cocaine Screen U Marijuana (THC) Screen Serum Alcohol 01/25/17 04:40 WBC RBC Hgb Hct MCV MCH MCHC RDW Plt Count Seg Neutrophils % Lymphocytes % Monocytes % Eosinophils % Basophils % Absolute Neutrophils Absolute Lymphocytes Absolute Monocytes Absolute Eosinophils Absolute Basophils VBG pH VBG pCO2 VBG HCO3 VBG Base Excess Sodium 141.6 Potassium 3.9 Chloride 111 H Carbon Dioxide 25 Anion Gap 6 BUN 6 L Creatinine 0.81 Est GFR ( Amer) > 60 Est GFR (Non-Af Amer) > 60 Glucose 87 POC Glucose Calcium 8.4 Magnesium Total Bilirubin 0.8 Direct Bilirubin 0.4 Indirect Bilirubin Not Reportable Neonat Total Bilirubin Not Reportable AST 83 H ALT 190 H Alkaline Phosphatase 80 Ammonia Creatine Kinase CK-MB (CK-2) Troponin I Total Protein 5.4 L Albumin 3.1 L TSH Urine Color Urine Appearance Urine pH Ur Specific [place] Urine Protein Urine Glucose (UA) Urine Ketones Urine Blood Urine Nitrite Urine Bilirubin Urine Urobilinogen Ur Leukocyte Esterase Urine WBC (Auto) U Hyaline Cast (Auto) Urine Mucus (Auto) Urine Ascorbic Acid Salicylates Urine Opiates Screen Urine Methadone Screen Acetaminophen Ur Barbiturates Screen Ur Phencyclidine Scrn Ur Amphetamines Screen U Benzodiazepines Scrn Urine Cocaine Screen U Marijuana (THC) Screen Serum Alcohol Impressions: Head CT 01/24/17 01:33 IMPRESSION: No acute findings. Qualifiers PATEINT BEING DISCHARGED WITH ANY OF THE FOLLOWING DIAGNOSIS?: No Plan Discharge Plan: Patient given substance abuse rehabilitation information by psychology. Time Spent: Less than 30 Minutes
== END 2017-01-25 15:31 | disposition home or self-care (01) | DRG 917 ==
LOC: ER 00:04 → EH 05:04 → UNDOADMIN 05:04 → EH 05:39 → ICU 06:50 → 4W 01-25 → 4S 01-25 08:41
PROVIDERS: ADMIT Family Medicine; ATTEND Family Medicine
DX: T50.902A Poisoning by unspecified drugs, medicaments and biological substances, intentional self-harm, initial encounter (principal); G92 Toxic encephalopathy; R45.851 Suicidal ideations; F31.9 Bipolar disorder, unspecified; E87.6 Hypokalemia; I10 Essential (primary) hypertension; F14.10 Cocaine abuse, uncomplicated; F12.10 Cannabis abuse, uncomplicated; F11.10 Opioid abuse, uncomplicated; F17.210 Nicotine dependence, cigarettes, uncomplicated; Y92.019 Unspecified place in single-family (private) house as the place of occurrence of the external cause
CPT/HCPCS: 36415; 51701; 70450; 80048; 80053; 80307; 81001; 82140; 82550; 82553; 82803; 82962; 83735; 84443; 84484; 85025; 93005; 93010; 96374; 99291; J1650; J2310; J3480; J3490; J7030; S0028

== ENCOUNTER 2017-02-03 04:56 | Emergency (ER) | payer SELFPAY ==
[2017-02-03 06:08] VITALS: BP 121/94
--- NOTE | 2017-02-03 06:19 | ER Document Report ---
ED General - General Chief Complaint: Depression Stated Complaint: POSSIBLE DEPRESSION Time Seen by Provider: 02/03/17 06:07 Mode of Arrival: Medic Information source: Patient Notes: 26 yr old male presents with complaints of high blood pressure and wanting to be tested for hepatitis c. pt was recently admitted for AMS, polysubstance abuse , he notes he last shot meth 8 hours ago and feels that it lowered his blood pressure ot normal now and he has no other complaints TRAVEL OUTSIDE OF THE [place] IN LAST 30 DAYS: No - HPI Onset: Just prior to arrival Onset/Duration: Sudden Quality of pain: No pain Severity: None Pain Level: Denies Associated symptoms: None Exacerbated by: Denies Relieved by: Denies Similar symptoms previously: Yes Recently seen / treated by doctor: Yes - Related Data Allergies/Adverse Reactions: No Known Allergies Allergy (Verified 01/23/17 14:01) Past Medical History - Social History Smoking Status: Current Every Day Smoker Cigarette use (# per day): Yes Chew tobacco use (# tins/day): No Smoking Education Provided: No Frequency of alcohol use: Heavy Drug Abuse: Heroin, Methamphetamine, Prescription drugs Family History: None Patient has suicidal ideation: No Patient has homicidal ideation: No - Past Medical History Cardiac Medical History: Reports: Hx Hypertension Renal/ Medical History: Denies: Hx Peritoneal Dialysis Psychiatric Medical History: Reports: Hx Bipolar Disorder Past Surgical History: Reports: Hx Oral Surgery - Immunizations Hx Diphtheria, Pertussis, Tetanus Vaccination: Yes Review of Systems - Review of Systems Notes: REVIEW OF SYSTEMS: CONSTITUTIONAL : Denies fever, chills, or sweats. Denies recent illness. EENT: Denies eye, ear, throat, or mouth pain or symptoms. Denies nasal or sinus congestion or discharge. Denies throat, tongue, or mouth swelling or difficulty swallowing. CARDIOVASCULAR: Denies chest pain. Denies palpitations or racing or irregular heart beat. Denies ankle edema. RESPIRATORY: Denies cough, cold, or chest congestion. Denies shortness of breath, difficulty breathing, or wheezing. GASTROINTESTINAL: Denies abdominal pain or distention. Denies nausea, vomiting , or diarrhea. Denies blood in vomitus, stools, or per rectum. Denies black, tarry stools. Denies constipation. GENITOURINARY: Denies difficulty urinating, painful urination, burning, frequency, blood in urine, or discharge. MUSCULOSKELETAL: Denies back or neck pain or stiffness. Denies joint pain or swelling. SKIN: Denies rash, lesions or sores. HEMATOLOGIC : Denies easy bruising or bleeding. LYMPHATIC: Denies swollen, enlarged glands. NEUROLOGICAL: Denies confusion or altered mental status. Denies passing out or loss of consciousness. Denies dizziness or lightheadedness. Denies headache. Denies weakness or paralysis or loss of use of either side. Denies problems with gait or speech. Denies sensory loss, numbness, or tingling. Denies seizures. PSYCHIATRIC: Denies anxiety or stress. Denies depression, suicidal ideation, or homicidal ideation. ALL OTHER SYSTEMS REVIEWED AND NEGATIVE. Dictation was performed using [employer] voice recognition software PHYSICAL EXAMINATION: GENERAL: Well-appearing, well-nourished and in no acute distress. HEAD: Atraumatic, normocephalic. EYES: Pupils equal round and reactive to light, extraocular movements intact, sclera anicteric, conjunctiva are normal. ENT: Nares patent, oropharynx clear without exudates. Moist mucous membranes. NECK: Normal range of motion, supple without lymphadenopathy LUNGS: Breath sounds clear to auscultation bilaterally and equal. No wheezes rales or rhonchi. HEART: Regular rate and rhythm without murmurs ABDOMEN: Soft, nontender, nondistended abdomen. No guarding, no rebound. No masses appreciated. Musculoskeletal: Normal range of motion, no pitting or edema. No cyanosis. NEUROLOGICAL: Cranial nerves grossly intact. Normal speech, normal gait. Normal sensory, motor exams PSYCH: Normal mood, normal affect. SKIN: Warm, Dry, normal turgor, no rashes or lesions noted. Physical Exam - Vital signs Vitals: Resp Pulse Ox 21 H 96 02/03/17 05:14 02/03/17 05:14 Course - Re-evaluation Re-evalutation: 02/03/17 06:17 Patient has no complaints, I believe he is here to be tested for hepatitis C, I will oblige him by ordering the studies. Otherwise he is in no distress his blood pressure is stable and I will have social work follow-up with him After performing a Medical Screening Examination, I estimate there is LOW risk for ACUTE CORONARY SYNDROME, RESPIRATORY FAILURE, SEPSIS OR MENINGITIS, thus I consider the discharge disposition reasonable. I have reevaluated this patient multiple times and no significant life threatening changes are noted. The patient and I have discussed the diagnosis and risks, and we agree with discharging home with close follow-up. We also discussed returning to the Emergency Department immediately if new or worsening symptoms occur. We have discussed the symptoms which are most concerning (e.g., changing or worsening pain, trouble swallowing or breathing, neck stiffness, fever) that necessitate immediate return. - Vital Signs Vital signs: Temp Pulse Resp BP Pulse Ox 19 121/94 H 100 02/03/17 06:01 02/03/17 06:01 02/03/17 06:01 Discharge - Discharge Clinical Impression: Polysubstance abuse Condition: Stable Disposition: HOME, SELF-CARE Instructions: High Blood Pressure ([facility]) Additional Instructions: Follow up with your physician tomorrow for further care or return to the ED IMMEDIATELY if symptoms worsen or new concerns occur. If you cannot afford to follow up with your primary care physician a list of low cost clinics have been provided at the end of your discharge papers as well.
== END 2017-02-03 06:42 | disposition home or self-care (01) ==
LOC: ER 04:56
DX: F19.20 Other psychoactive substance dependence, uncomplicated (principal); Z11.59 Encounter for screening for other viral diseases; I10 Essential (primary) hypertension
CPT/HCPCS: 36415; 80074; 99284

== ENCOUNTER 2017-03-21 20:02 | Emergency (ER) | payer SELFPAY ==
[2017-03-21] MEDS ORDERED: ASPIRIN 81 MG TABLET, CHEWABLE PO ONE (21:57)
--- NOTE | 2017-03-21 21:59 | ER Document Report ---
ED Medical Screen (RME) - General Chief Complaint: Chest Wall Pain Stated Complaint: HIGH BLOOD PRESSURE PROBLEMS WITH CHEST PAIN Time Seen by Provider: 03/21/17 21:48 Notes: Patient is a 27-year-old male left humerus department complaining of chest wall pain. He states that he has been having this on and off for about 3 weeks. States it has gotten more frequent today. States that it hurts when he presses on his chest. Otherwise he does admit to prescription benzodiazepine use as well as using speed and Suboxone over the past couple of days. Patient states that he did run out of his Xanax about 3 days ago. TRAVEL OUTSIDE OF THE [place] IN LAST 30 DAYS: No - Related Data Allergies/Adverse Reactions: No Known Allergies Allergy (Verified 01/23/17 14:01) Past Medical History - Social History Chew tobacco use (# tins/day): No Frequency of alcohol use: 3 nights a week Drug Abuse: Cocaine, Methamphetamine, Prescription drugs, Other - Past Medical History Cardiac Medical History: Reports: Hx Hypertension Renal/ Medical History: Denies: Hx Peritoneal Dialysis Psychiatric Medical History: Reports: Hx Bipolar Disorder Past Surgical History: Reports: Hx Oral Surgery - Immunizations Hx Diphtheria, Pertussis, Tetanus Vaccination: Yes Physical Exam - Vital signs Vitals: Temp Pulse Resp BP Pulse Ox 98.1 F 115 H 18 147/90 H 98 03/21/17 20:22 03/21/17 20:22 03/21/17 20:22 03/21/17 20:22 03/21/17 20:22 - General General appearance: Appears well, Alert In distress: None - Respiratory Respiratory status: No respiratory distress Chest status: Tender - Chest wall is tender to palpation along the sternum and pain reproducible to palpation Breath sounds: Normal Chest palpation: Tender - Cardiovascular Rhythm: Regular Heart sounds: Normal auscultation, S1 appreciated, S2 appreciated Gallop: None auscultated Pulses: Normal: Radial Course - Vital Signs Vital signs: Temp Pulse Resp BP Pulse Ox 98.1 F 115 H 18 147/90 H 98 03/21/17 20:22 03/21/17 20:22 03/21/17 20:22 03/21/17 20:22 03/21/17 20:22
--- NOTE | 2017-03-21 22:45 | RADIOLOGY REPORT (SQ) ---
EXAM DESCRIPTION: CHEST PA/LAT COMPLETED DATE/TIME: 03/21/2017 10:07 pm REASON FOR STUDY: chest wall pain COMPARISON: 12/13/2009 EXAM PARAMETERS: NUMBER OF VIEWS: two views TECHNIQUE: Digital Frontal and Lateral radiographic views of the chest acquired. RADIATION DOSE: NA LIMITATIONS: none FINDINGS: LUNGS AND PLEURA: No opacities, masses or pneumothorax. No pleural effusion. MEDIASTINUM AND HILAR STRUCTURES: No masses or contour abnormalities. HEART AND VASCULAR STRUCTURES: Heart normal size. No evidence for failure. BONES: No acute findings. HARDWARE: None in the chest. OTHER: No other significant finding. IMPRESSION: No acute findings. TECHNICAL DOCUMENTATION: JOB ID: [id number] [employer]- All Rights Reserved
[2017-03-21] MEDS ORDERED: DIAZEPAM 5 MG TABLET PO ONE (22:49)
[2017-03-21 23:08] VITALS: BP 113/64
--- NOTE | 2017-03-21 23:45 | ER Document Report ---
ED General - General Chief Complaint: Chest Wall Pain Stated Complaint: HIGH BLOOD PRESSURE PROBLEMS WITH CHEST PAIN Time Seen by Provider: 03/21/17 21:48 Notes: Patient is a 27-year-old male with a past history of polysubstance abuse who presents concerning his ongoing drug abuse and need for detox. Patient does also note that he has had high blood pressure in the setting of trying to come off of the multitude of substances that he takes and believes that he is also had a episode of chest pain today although admits that the chest pain is now resolved. In regards to the chest pain: Patient states that this is a brief episode of left-sided chest discomfort that was sharp in nature and has spontaneously resolved. He has no history of cardiac pathology, pulmonary embolism or DVT. Nothing improves or worsen the pain when present. He denies any direct trauma to the area. No shortness of breath, nausea, vomiting or diaphoresis associated with the pain. Although patient did initially report chest pain in triage, to me the patient is much more concerned regarding his withdrawals from a multitude of substances as well as the need for inpatient rehabilitation. He denies any history of complicated withdrawal from alcohol or benzodiazepines. He has had multiple hospitalizations as well as inpatient detox stays with almost immediate relapse upon discharge. TRAVEL OUTSIDE OF THE [place] IN LAST 30 DAYS: No - Related Data Allergies/Adverse Reactions: No Known Allergies Allergy (Verified 01/23/17 14:01) Past Medical History - General Information source: Patient - Social History Smoking Status: Current Every Day Smoker Chew tobacco use (# tins/day): No Frequency of alcohol use: 3 nights a week Drug Abuse: Cocaine, Methamphetamine, Prescription drugs, Other Lives with: Parents Family History: Reviewed & Not Pertinent Patient has suicidal ideation: No Patient has homicidal ideation: No - Past Medical History Cardiac Medical History: Reports: Hx Hypertension Renal/ Medical History: Denies: Hx Peritoneal Dialysis Psychiatric Medical History: Reports: Hx Bipolar Disorder Past Surgical History: Reports: Hx Oral Surgery - Immunizations Hx Diphtheria, Pertussis, Tetanus Vaccination: Yes Review of Systems - Review of Systems Notes: Constitutional: Negative for fever. HENT: Negative for sore throat. Eyes: Negative for visual changes. Cardiovascular: Positive for chest pain. Respiratory: Negative for shortness of breath. Gastrointestinal: Negative for abdominal pain, vomiting or diarrhea. Genitourinary: Negative for dysuria. Musculoskeletal: Negative for back pain. Skin: Negative for rash. Neurological: Negative for headaches, weakness or numbness. 10 point ROS negative except as marked above and in HPI. Physical Exam - Vital signs Vitals: Temp Pulse Resp BP Pulse Ox 98.1 F 115 H 18 147/90 H 98 03/21/17 20:22 03/21/17 20:22 03/21/17 20:22 03/21/17 20:22 03/21/17 20:22 Interpretation: Tachycardic Notes: PHYSICAL EXAMINATION: GENERAL: Well-appearing, well-nourished and in no acute distress. HEAD: Atraumatic, normocephalic. EYES: Pupils equal round and reactive to light, extraocular movements intact, sclera anicteric, conjunctiva are normal. ENT: nares patent, oropharynx clear without exudates. Moist mucous membranes. NECK: Normal range of motion, supple without lymphadenopathy LUNGS: Breath sounds clear to auscultation bilaterally and equal. No wheezes rales or rhonchi. HEART: Regular rate and rhythm without murmurs ABDOMEN: Soft, nontender, normoactive bowel sounds. No guarding, no rebound. No masses appreciated. EXTREMITIES: Normal range of motion, no pitting or edema. No cyanosis. NEUROLOGICAL: No focal neurological deficits. Moves all extremities spontaneously and on command. PSYCH: Normal mood, normal affect. SKIN: Warm, Dry, normal turgor, no rashes or lesions noted. Course - Re-evaluation Re-evalutation: 03/21/17 23:41 Patient presents requesting assistance with detox and does also mention that in the setting of his withdrawal he was having some chest pain now resolved. Patient reports that he is planning to go into an inpatient rehab tomorrow I think this is appropriate given his long-term history of substance abuse. Patient states he has been a daily polysubstance abuser for the last 6 years. His abuse does include alcohol and benzodiazepines but he has no history of complicated withdrawals. Here in the emergency department he does not exhibit any signs of clinically symptomatic withdrawal from alcohol or benzodiazepines. At time of my assessment no tachycardia, hypertension, tremulousness or agitation. He is calm, cooperative, laughing and joking with me during evaluation. Regarding his chest pain: This appears to be musculoskeletal in origin, very reproducible over the left side of his chest. EKG without ischemic changes. Chest x-ray is clear. I do not believe there is indication for cardiac markers given clinical history and examination. I will prescribe a small amount of chlordiazepoxide for outpatient therapy until patient getting it into rehab tomorrow afternoon. At this time will discharge with return precautions and follow-up recommendations. Verbal discharge instructions given a the bedside and opportunity for questions given. Medication warnings reviewed. Patient is in agreement with this plan and has verbalized understanding of return precautions and the need to go to rehab in the AM as discussed. - Vital Signs Vital signs: Temp Pulse Resp BP Pulse Ox 98.1 F 115 H 16 113/64 98 03/21/17 20:22 03/21/17 20:22 03/21/17 23:02 03/21/17 23:02 03/21/17 23:02 - Diagnostic Test Radiology reviewed: Image reviewed, Reports reviewed Radiology results interpreted by me: 03/22/17 03:04 Chest x-ray: No acute infiltrate or pneumothorax - EKG Interpretation by Me Additional EKG results interpreted by me: 03/22/17 03:05 Normal sinus rhythm. Rate 86. No ST elevations or depressions. QTC is 445. Discharge - Discharge Clinical Impression: Polysubstance abuse, Chest wall pain Condition: Fair Disposition: HOME, SELF-CARE Additional Instructions: You need to return to the emergency room immediately if you pass out, or vomiting so severely your unable to keep anything down, start hallucinate, or have any other symptoms that are of concern to you. You need to go to an inpatient program and should speak with your primary care doctor regarding these resources. Prescriptions: Chlordiazepoxide HCl [Librium 25 mg Capsule] 2 cap PO TID PRN #10 capsule PRN Reason:
--- NOTE | 2017-03-22 09:05 | EKG REPORT ---
SEVERITY:- NORMAL ECG - SINUS RHYTHM : Confirmed by: Lisa Gaspar MD 22-Mar-2017 09:04:41
== END 2017-03-21 23:54 | disposition home or self-care (01) ==
LOC: ER 20:02
DX: F10.10 Alcohol abuse, uncomplicated (principal); F13.10 Sedative, hypnotic or anxiolytic abuse, uncomplicated; F14.10 Cocaine abuse, uncomplicated; F15.10 Other stimulant abuse, uncomplicated; F17.200 Nicotine dependence, unspecified, uncomplicated; I10 Essential (primary) hypertension; R07.89 Other chest pain
CPT/HCPCS: 71020; 93005; 93010; 99284

== ENCOUNTER 2017-03-22 04:40 | Emergency (ER) | payer SELFPAY ==
--- NOTE | 2017-03-22 05:04 | ER Document Report ---
ED Psych Disorder / Suicide - General Chief Complaint: Hallucinations Stated Complaint: MEDICATION REFILL/HALLUCINATING Time Seen by Provider: 03/22/17 05:01 Notes: The patient is a 27-year-old male, past medical history bipolar, possible schizophrenia, methamphetamine and benzo abuse, hypertension, presents with increasing auditory hallucinations are telling him to hurt himself and to hurt his father. According to his stepmother at bedside, he was wielding a machete earlier tonight. Patient has been off of his psychiatric medications for the past 6 weeks because he was unable to afford them. He recently moved to [place] from [place]. [facility] Lib[facility], but he did not fill the prescription. Patient denies suicide attempt, chest pain, shortness of breath, nausea, vomiting, fevers, headache or neck pain. TRAVEL OUTSIDE OF THE [place] IN LAST 30 DAYS: No - Related Data Allergies/Adverse Reactions: No Known Allergies Allergy (Verified 01/23/17 14:01) Past Medical History - General Information source: Patient - Social History Smoking Status: Current Every Day Smoker Frequency of alcohol use: None Drug Abuse: Methamphetamine, Prescription drugs - Benzos Family History: Reviewed & Not Pertinent Patient has suicidal ideation: No Patient has homicidal ideation: No - Past Medical History Cardiac Medical History: Reports: Hx Hypertension Renal/ Medical History: Denies: Hx Peritoneal Dialysis Psychiatric Medical History: Reports: Hx Bipolar Disorder Past Surgical History: Reports: Hx Oral Surgery - Immunizations Hx Diphtheria, Pertussis, Tetanus Vaccination: Yes Review of Systems - Review of Systems Notes: REVIEW OF SYSTEMS: CONSTITUTIONAL: -fevers, -chills EENT: -eye pain, -difficulty swallowing, -nasal congestion CARDIOVASCULAR:-chest pain, -syncope. RESPIRATORY: -cough, -SOB GASTROINTESTINAL: -abdominal pain, - nausea, -vomiting, -diarrhea GENITOURINARY: -dysuria, -hematuria MUSCULOSKELETAL: -back pain, -neck pain SKIN: -rash or skin lesions. HEMATOLOGIC: -easy bruising or bleeding. LYMPHATIC: -swollen, enlarged glands. NEUROLOGICAL: -altered mental status or loss of consciousness, -headache, - neurologic symptoms PSYCHIATRIC: -anxiety, -depression, +auditory hallucinations ALL OTHER SYSTEMS REVIEWED AND NEGATIVE. Physical Exam - Vital signs Vitals: Temp Pulse Resp BP Pulse Ox 98.5 F 103 H 20 135/88 H 95 03/22/17 04:45 03/22/17 04:45 03/22/17 04:45 03/22/17 04:45 03/22/17 04:45 - Notes Notes: PHYSICAL EXAMINATION: GENERAL: Well-appearing, well-nourished and in no acute distress. HEAD: Atraumatic, normocephalic. EYES: Pupils equal round and reactive to light, extraocular movements intact, sclera anicteric, conjunctiva are normal. ENT: nares patent, oropharynx clear without exudates. Moist mucous membranes. NECK: Normal range of motion, supple without lymphadenopathy LUNGS: Breath sounds clear to auscultation bilaterally and equal. No wheezes rales or rhonchi. HEART: Regular rate and rhythm without murmurs ABDOMEN: Soft, nontender, normoactive bowel sounds. No guarding, no rebound. No masses appreciated. EXTREMITIES: Normal range of motion, no pitting or edema. No cyanosis. NEUROLOGICAL: Cranial nerves grossly intact. Normal speech, normal gait. Normal sensory and motor exams. PSYCH: Normal mood, normal affect. SKIN: Warm, Dry, normal turgor, no rashes or lesions noted. Course - Re-evaluation Re-evalutation: 03/22/17 05:27 Pt is in no acute distress. Will monitor for signs of benzo withdrawal. Will have mental health evaluate patient in the morning due to increased auditory hallucinations, suicidal thoughts and homicidal thoughts. IVC filled out. - Vital Signs Vital signs: Temp Pulse Resp BP Pulse Ox 98.5 F 103 H 20 135/88 H 95 03/22/17 04:45 03/22/17 04:45 03/22/17 04:45 03/22/17 04:45 03/22/17 04:45 Discharge - Discharge Clinical Impression: Auditory hallucinations, Suicidal thoughts Condition: Stable Disposition: PSYCH HOSP/UNIT
[2017-03-22] MEDS ORDERED: ACETAMINOPHEN 325 MG TABLET PO ONE (05:16)
[2017-03-22 06:01] LABS: ABSOLUTE EOSINOPHILS # (AUTO) 0.2 10^3/uL (0.0-0.6); ABSOLUTE LYMPHOCYTES (AUTO) 2.1 10^3/uL (0.5-4.7); ABSOLUTE MONOCYTES (AUTO) 0.6 10^3/uL (0.1-1.4); ABSOLUTE NEUT (AUTO) 3.8 10^3/uL (1.7-8.2); BASOPHILS % (AUTO) 0.3 % (0-2); EOSINOPHILS % (AUTO) 2.9 % (0-6); HEMATOCRIT 41.6 % (37.9-51.0); HEMOGLOBIN 14.7 g/dL (13.5-17.0); HGB HCT DIFFERENCE 2.5; LYMPHOCYTES % (AUTO) 31.5 % (13-45); MEAN CORPUSCULAR HEMOGLOBIN 32.9 pg (27.0-33.4); MEAN CORPUSCULAR HGB CONC 35.3 g/dL (32.0-36.0); MEAN CORPUSCULAR VOLUME 93 fl (80-97); MONOCYTES % (AUTO) 8.4 % (3-13); RED BLOOD COUNT 4.47 10^6/uL (4.35-5.55); SEGMENTED NEUTROPHILS % (AUTO) 56.9 % (42-78); WHITE BLOOD COUNT 6.6 10^3/uL (4.0-10.5)
[2017-03-22 06:21] LABS: ALANINE AMINOTRANSFERASE 52 U/L (21-72); ALBUMIN 4.1 g/dL (3.5-5.0); ALKALINE PHOSPHATASE 77 U/L (38-126); ANION GAP 8 (5-19); ASPARTATE AMINO TRANSFERASE 23 U/L (17-59); BILIRUBIN,DIRECT 0.4 mg/dL (0.0-0.4); BILIRUBIN,TOTAL 0.5 mg/dL (0.2-1.3); BLOOD UREA NITROGEN 11 mg/dL (7-20); CALCIUM 9.6 mg/dL (8.4-10.2); CARBON DIOXIDE 29 mmol/L (22-30); CHLORIDE 103 mmol/L (98-107); CREATININE RESULT 0.82 mg/dL (0.52-1.25); GLUCOSE 104 mg/dL (75-110); POTASSIUM 4.5 mmol/L (3.6-5.0); SODIUM 139.8 mmol/L (137-145); TOTAL PROTEIN 6.7 g/dL (6.3-8.2)
[2017-03-22 06:23] LABS: ALCOHOL < 10 mg/dL (NONE DETECTED)
[2017-03-22 07:07] LABS: APPEARANCE,URINE CLEAR; BILIRUBIN,URINE NEGATIVE (NEGATIVE); GLUCOSE, URINE NEGATIVE (NEGATIVE); KETONES,URINE NEGATIVE (NEGATIVE); LEUKOCYTE ESTERASE,URINE NEGATIVE (NEGATIVE); NITRITE,URINE NEGATIVE (NEGATIVE); PROTEIN,URINE NEGATIVE (NEGATIVE); URINE SPECIFIC GRAVITY 1.011; UROBILINOGEN,URINE NEGATIVE mg/dL (<2.0)
[2017-03-22 07:23] LABS: URINE BARBITURATES SCREEN NEGATIVE; URINE METHADONE SCREEN NEGATIVE; URINE OPIATES LOW NEGATIVE; URINE PHENCYCLIDINE SCREEN NEGATIVE
--- NOTE | 2017-03-22 09:05 | EKG REPORT ---
SEVERITY:- NORMAL ECG - SINUS RHYTHM : Confirmed by: Lisa Gaspar MD 22-Mar-2017 09:04:32
--- NOTE | 2017-03-22 15:43 | ER Document Report ---
Doctor's Note Notes: 03/22/17 15:43 Patient was seen and evaluated. Patient was sleeping at this time. No complaints. Heart and lungs normal. Will continue to follow. Waiting on mental health disposition at this time.
[2017-03-23] MEDS ORDERED: ACETAMINOPHEN 325 MG TABLET PO ONE (00:57)
[2017-03-23 13:29] VITALS: BP 138/70
== END 2017-03-23 13:30 | disposition home or self-care (01) ==
LOC: ER 04:40
DX: R44.0 Auditory hallucinations (principal); R45.851 Suicidal ideations; F11.20 Opioid dependence, uncomplicated; R03.0 Elevated blood-pressure reading, without diagnosis of hypertension; F17.200 Nicotine dependence, unspecified, uncomplicated
CPT/HCPCS: 36415; 80053; 80307; 81001; 85025; 93005; 93010; 99285

== ENCOUNTER 2018-04-07 01:44 | Emergency (ER) | payer SELFPAY ==
[2018-04-07] MEDS ORDERED: ZIPRASIDONE MESYLATE INJ/PF 20 MG SDV IM ONE (02:14)
[2018-04-07 02:18] LABS: ABSOLUTE BASOPHILS # (AUTO) 0.1 10^3/uL (0.0-0.2); ABSOLUTE EOSINOPHILS # (AUTO) 0.3 10^3/uL (0.0-0.6); ABSOLUTE LYMPHOCYTES (AUTO) 3.8 10^3/uL (0.5-4.7); ABSOLUTE MONOCYTES (AUTO) 0.6 10^3/uL (0.1-1.4); ABSOLUTE NEUT (AUTO) 4.1 10^3/uL (1.7-8.2); BASOPHILS % (AUTO) 0.6 % (0-2); EOSINOPHILS % (AUTO) 3.7 % (0-6); HEMATOCRIT 44.1 % (37.9-51.0); HEMOGLOBIN 15.6 g/dL (13.5-17.0); LYMPHOCYTES % (AUTO) 42.5 % (13-45); MEAN CORPUSCULAR HEMOGLOBIN 34.2 pg (27.0-33.4); MEAN CORPUSCULAR HGB CONC 35.3 g/dL (32.0-36.0); MEAN CORPUSCULAR VOLUME 97 fl (80-97); PLATELET COUNT 349 10^3/uL (150-450); RED BLOOD COUNT 4.55 10^6/uL (4.35-5.55); RED CELL DISTRIBUTION WIDTH 13.3 % (11.5-14.0); SEGMENTED NEUTROPHILS % (AUTO) 46.2 % (42-78); TOTAL CELLS COUNTED % (AUTO) 100 %; WHITE BLOOD COUNT 8.9 10^3/uL (4.0-10.5)
[2018-04-07] MEDS ORDERED: NICOTINE 21 MG/24 HR PATCH.TD24 TD ONE (02:29)
[2018-04-07 02:36] LABS: ALANINE AMINOTRANSFERASE 142 U/L (21-72); ALBUMIN 4.7 g/dL (3.5-5.0); ALCOHOL 15 mg/dL (NONE DETECTED); ALKALINE PHOSPHATASE 96 U/L (38-126); ANION GAP 14 (5-19); ASPARTATE AMINO TRANSFERASE 71 U/L (17-59); BILIRUBIN,DIRECT 0.2 mg/dL (0.0-0.4); BILIRUBIN,TOTAL 0.5 mg/dL (0.2-1.3); BLOOD UREA NITROGEN 10 mg/dL (7-20); CALCIUM 9.9 mg/dL (8.4-10.2); CARBON DIOXIDE 25 mmol/L (22-30); CHLORIDE 101 mmol/L (98-107); GLUCOSE 83 mg/dL (75-110); POTASSIUM 3.8 mmol/L (3.6-5.0); SODIUM 139.6 mmol/L (137-145); TOTAL PROTEIN 7.7 g/dL (6.3-8.2)
[2018-04-07 02:38] LABS: ACETAMINOPHEN < 10 ug/mL (10-30); SALICYLATE < 1.0 mg/dL (2.0-20.0)
[2018-04-07] MEDS ORDERED: ACETAMINOPHEN 325 MG TABLET ONE (02:44)
[2018-04-07] MEDS ORDERED: ACETAMINOPHEN 325 MG TABLET PO ONE (02:45)
[2018-04-07 03:17] LABS: APPEARANCE,URINE SLIGHTLY-CLOUDY; BILIRUBIN,URINE NEGATIVE (NEGATIVE); COLOR,URINE YELLOW; GLUCOSE, URINE NEGATIVE (NEGATIVE); KETONES,URINE NEGATIVE (NEGATIVE); LEUKOCYTE ESTERASE,URINE NEGATIVE (NEGATIVE); NITRITE,URINE NEGATIVE (NEGATIVE); PROTEIN,URINE NEGATIVE (NEGATIVE); URINE SPECIFIC GRAVITY 1.016
[2018-04-07 03:22] LABS: URINE COCAINE SCREEN NEGATIVE; URINE METHADONE SCREEN NEGATIVE; URINE PHENCYCLIDINE SCREEN NEGATIVE
[2018-04-07 03:26] LABS: URINE BARBITURATES SCREEN UNCONFIRMED POSITIVE; URINE BENZODIAZEPINES SCREEN UNCONFIRMED POSITIVE; URINE MARIJUANA (THC) SCREEN UNCONFIRMED POSITIVE
--- NOTE | 2018-04-07 03:47 | ER Document Report ---
ED General - General Chief Complaint: Medication Refill Stated Complaint: MED REFILL Time Seen by Provider: 04/07/18 02:02 Notes: Patient is a 28-year-old male with a past medical history of bipolar disorder, polysubstance abuse who presents with agitation, homicidal ideation, auditory hallucinations. He states that the symptoms have been progressively worsening over the last 5 days. States he is out of all his medications and attributes his symptoms to not having his medications. He has not contacted his psychiatrist her primary care doctor regarding today's concerns. Nothing improves or worsens his symptoms. He denies any acute medical concerns. History is otherwise limited due to the patient's psychiatric illness TRAVEL OUTSIDE OF THE [place] IN LAST 30 DAYS: No - Related Data Allergies/Adverse Reactions: No Known Allergies Allergy (Verified 01/23/17 14:01) Past Medical History - General Information source: Patient - Social History Smoking Status: Current Every Day Smoker Chew tobacco use (# tins/day): No Drug Abuse: Marijuana, Methamphetamine Lives with: Family Family History: Reviewed & Not Pertinent Patient has suicidal ideation: Yes Patient has homicidal ideation: Yes - Past Medical History Cardiac Medical History: Reports: Hx Hypertension Renal/ Medical History: Denies: Hx Peritoneal Dialysis Psychiatric Medical History: Reports: Hx Bipolar Disorder, Hx Schizophrenia Past Surgical History: Reports: Hx Oral Surgery - wisdom teeth, Hx Orthopedic Surgery - right hand - Immunizations Hx Diphtheria, Pertussis, Tetanus Vaccination: Yes Review of Systems - Review of Systems Notes: Constitutional: Negative for fever. HENT: Negative for sore throat. Eyes: Negative for visual changes. Cardiovascular: Negative for chest pain. Respiratory: Negative for shortness of breath. Gastrointestinal: Negative for abdominal pain, vomiting or diarrhea. Genitourinary: Negative for dysuria. Musculoskeletal: Negative for back pain. Skin: Negative for rash. Neurological: Negative for headaches, weakness or numbness. 10 point ROS negative except as marked above and in HPI. Physical Exam - Vital signs Interpretation: Normal Notes: PHYSICAL EXAMINATION: GENERAL: Well-appearing, well-nourished and in no acute distress. HEAD: Atraumatic, normocephalic. EYES: Pupils equal round and reactive to light, extraocular movements intact, sclera anicteric, conjunctiva are normal. ENT: nares patent, oropharynx clear without exudates. Moist mucous membranes. NECK: Normal range of motion, supple without lymphadenopathy LUNGS: Breath sounds clear to auscultation bilaterally and equal. No wheezes rales or rhonchi. HEART: Regular rate and rhythm without murmurs ABDOMEN: Soft, nontender, normoactive bowel sounds. No guarding, no rebound. No masses appreciated. EXTREMITIES: Normal range of motion, no pitting or edema. No cyanosis. NEUROLOGICAL: No focal neurological deficits. Moves all extremities spontaneously and on command. PSYCH: Poor eye contact, somewhat agitated, redirectable SKIN: Warm, Dry, normal turgor, no rashes or lesions noted. Course - Re-evaluation Re-evalutation: 04/07/18 03:47 Patient presents with agitation, homicidal ideation, auditory hallucinations in the context of being off of all of his medications for the past 5 days. He is redirectable with somewhat agitated on assessment. He denies any acute medical complaints. His medical screening exam and laboratories are otherwise unremarkable. He is medically cleared for evaluation and disposition per our psychology service in the morning. - Laboratory Result Diagrams: 04/07/18 02:09 04/07/18 02:09 Laboratory results interpreted by me: 04/07/18 04/07/18 04/07/18 02:00 02:09 02:09 MCH 34.2 H AST 71 H ALT 142 H Urine Urobilinogen 2.0 H Salicylates < 1.0 L Acetaminophen < 10 L - EKG Interpretation by Me Additional EKG results interpreted by me: 04/07/18 03:48 Sinus rhythm. Rate 81. No ST elevations or depressions. QTC is 455. Discharge - Discharge Clinical Impression: Homicidal ideation, Agitation, Noncompliance with medication regimen Condition: Fair
--- NOTE | 2018-04-07 08:46 | EKG REPORT ---
SEVERITY:- NORMAL ECG - SINUS RHYTHM : Confirmed by: Demian Johnson MD 07-Apr-2018 08:46:22
--- NOTE | 2018-04-07 10:01 | ER Document Report ---
Doctor's Note Notes: 04/07/18 09:52 As the rounding physician for our psychiatric patients, I have reviewed the chart, vitals, lab work. Patient has been examined and noted to be in no acute distress with no no events overnight. I am awaiting mental health in [place]. Psych team is evaluated and is concerned that the patient's claim to his girlfriend taking his meds may not be truthful and that he may be selling them. He will be discharged with no additional medications. 04/07/18 11:31 Patient cleared for discharge by mental health team. No additional meds will be provided.
[2018-04-07 11:48] VITALS: BP 124/72
== END 2018-04-07 11:45 | disposition home or self-care (01) ==
LOC: ER 01:44
DX: R45.850 Homicidal ideations (principal); R45.1 Restlessness and agitation; Z91.14 Patient's other noncompliance with medication regimen; I10 Essential (primary) hypertension
CPT/HCPCS: 93005; 99283; 96372; 36415; 80307 ×4; 85025; 80053; 81001; 93010; J3486

== ENCOUNTER 2018-04-08 17:57 | Emergency (ER) | payer SELFPAY ==
--- NOTE | 2018-04-08 19:06 | ER Document Report ---
ED Medical Screen (RME) - General Chief Complaint: Psych Problem Stated Complaint: PSYCH EVAL Time Seen by Provider: 04/08/18 18:53 Notes: Patient is a 28-year-old male with schizophrenia that presents to the emergency department for chief complaint of hallucinations and paranoia. Patient reports he is been off his medications for about for 5 days previous on lithium and Geodon, he states he cannot afford these medications, he was seen in the hospital last night, he states he was not truthful with the mental health team, and he came back today because his symptoms are persistent, and is not improving. He feels frustrated, has passive suicidal ideation. ROS: Unless otherwise stated in this report the patient's positive and negative responses for review of systems for constitutional, eyes, ENT, cardiovascular, respiratory, gastrointestinal, neurological, genitourinary, musculoskeletal, and integumentary systems and related systems to the presenting problem are either as stated in the HPI or were not pertinent or were negative for the symptoms and/or complaints related to the presenting medical problem. PHYSICAL EXAMINATION: Vital signs reviewed. GENERAL: Well-appearing, well-nourished and in no acute distress. HEAD: Atraumatic, normocephalic. EYES: Pupils equal round extraocular movements intact, conjunctiva are normal. ENT: Nares patent NECK: Normal range of motion CV: Heart regular rate and rhythm LUNGS: No respiratory distress Musculoskeletal: Normal range of motion NEUROLOGICAL: Normal speech PSYCH: Flat affect, pressured speech MDM: Patient seen and examined for rapid initial assessment. Vital signs reviewed. A comprehensive ED assessment and evaluation of the patient, analysis of test results and completion of the medical decision making process will be conducted by additional ED providers. *Note is created using voice recognition software and may contain spelling, syntax or grammatical errors. TRAVEL OUTSIDE OF THE [place] IN LAST 30 DAYS: No - Related Data Allergies/Adverse Reactions: No Known Allergies Allergy (Verified 01/23/17 14:01) Past Medical History - Social History Frequency of alcohol use: Occasional Drug Abuse: Methamphetamine - Past Medical History Cardiac Medical History: Reports: Hx Hypertension Renal/ Medical History: Denies: Hx Peritoneal Dialysis Psychiatric Medical History: Reports: Hx Bipolar Disorder, Hx Schizophrenia Past Surgical History: Reports: Hx Oral Surgery - wisdom teeth, Hx Orthopedic Surgery - right hand - Immunizations Hx Diphtheria, Pertussis, Tetanus Vaccination: Yes Physical Exam - Vital signs Vitals: Temp Pulse Resp BP Pulse Ox 97.9 F 71 18 147/111 H 97 04/08/18 18:05 04/08/18 18:05 04/08/18 18:05 04/08/18 18:05 04/08/18 18:05 Course - Vital Signs Vital signs: Temp Pulse Resp BP Pulse Ox 97.9 F 71 18 147/111 H 97 04/08/18 18:05 04/08/18 18:05 04/08/18 18:05 04/08/18 18:05 04/08/18 18:05
[2018-04-08 19:41] LABS: ABSOLUTE EOSINOPHILS # (AUTO) 0.3 10^3/uL (0.0-0.6); ABSOLUTE LYMPHOCYTES (AUTO) 3.1 10^3/uL (0.5-4.7); ABSOLUTE MONOCYTES (AUTO) 0.8 10^3/uL (0.1-1.4); ABSOLUTE NEUT (AUTO) 5.1 10^3/uL (1.7-8.2); BASOPHILS % (AUTO) 0.4 % (0-2); HEMATOCRIT 48.3 % (37.9-51.0); HEMOGLOBIN 16.9 g/dL (13.5-17.0); LYMPHOCYTES % (AUTO) 33.3 % (13-45); MEAN CORPUSCULAR HEMOGLOBIN 33.7 pg (27.0-33.4); MEAN CORPUSCULAR VOLUME 97 fl (80-97); PLATELET COUNT 360 10^3/uL (150-450); RED BLOOD COUNT 5.01 10^6/uL (4.35-5.55); SEGMENTED NEUTROPHILS % (AUTO) 54.3 % (42-78); TOTAL CELLS COUNTED % (AUTO) 100 %; WHITE BLOOD COUNT 9.3 10^3/uL (4.0-10.5)
[2018-04-08 19:51] LABS: APPEARANCE,URINE SLIGHTLY-CLOUDY; BILIRUBIN,URINE NEGATIVE (NEGATIVE); COLOR,URINE YELLOW; GLUCOSE, URINE NEGATIVE (NEGATIVE); KETONES,URINE 20 mg/dL (NEGATIVE); LEUKOCYTE ESTERASE,URINE NEGATIVE (NEGATIVE); NITRITE,URINE NEGATIVE (NEGATIVE); PROTEIN,URINE NEGATIVE (NEGATIVE); URINE SPECIFIC GRAVITY 1.023
[2018-04-08 19:59] LABS: ALANINE AMINOTRANSFERASE 155 U/L (21-72); ALBUMIN 5.2 g/dL (3.5-5.0); ALKALINE PHOSPHATASE 96 U/L (38-126); ANION GAP 13 (5-19); ASPARTATE AMINO TRANSFERASE 87 U/L (17-59); BILIRUBIN,DIRECT 0.2 mg/dL (0.0-0.4); BILIRUBIN,TOTAL 0.7 mg/dL (0.2-1.3); BLOOD UREA NITROGEN 10 mg/dL (7-20); CALCIUM 10.4 mg/dL (8.4-10.2); CARBON DIOXIDE 32 mmol/L (22-30); CHLORIDE 95 mmol/L (98-107); GLUCOSE 89 mg/dL (75-110); POTASSIUM 4.1 mmol/L (3.6-5.0); SODIUM 140.4 mmol/L (137-145); TOTAL PROTEIN 8.5 g/dL (6.3-8.2)
[2018-04-08 20:01] LABS: ACETAMINOPHEN < 10 ug/mL (10-30); ALCOHOL < 10 mg/dL (NONE DETECTED); SALICYLATE < 1.0 mg/dL (2.0-20.0); URINE BARBITURATES SCREEN UNCONFIRMED POSITIVE; URINE BENZODIAZEPINES SCREEN UNCONFIRMED POSITIVE; URINE COCAINE SCREEN NEGATIVE; URINE MARIJUANA (THC) SCREEN UNCONFIRMED POSITIVE; URINE METHADONE SCREEN NEGATIVE; URINE PHENCYCLIDINE SCREEN NEGATIVE
[2018-04-08] MEDS ORDERED: FLUOXETINE HCL 20 MG CAPSULE PO ONE (21:35)
[2018-04-08] MEDS ORDERED: ALPRAZOLAM 0.5 MG TABLET PO ONE (21:35)
[2018-04-08] MEDS ORDERED: LITHIUM CARBONATE 300 MG CAPSULE PO ONE (21:36)
[2018-04-08] MEDS ORDERED: LISINOPRIL 10 MG TABLET PO ONE (21:36)
[2018-04-08] MEDS ORDERED: TRAZODONE HCL 50 MG TABLET PO ONE (21:37)
[2018-04-08] MEDS ORDERED: ZIPRASIDONE HCL 40 MG CAPSULE PO ONE (21:37)
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
--- NOTE | 2018-04-08 23:19 | EKG REPORT ---
SEVERITY:- NORMAL ECG - SINUS RHYTHM : Confirmed by: Monika Silverman 08-Apr-2018 23:18:38
--- NOTE | 2018-04-09 09:21 | ER Document Report ---
Doctor's Note Notes: 04/09/18 09:21 This is a 28-year-old man with a history of schizoaffective bipolar type who presented to the emergency room with psychosis in the setting of medicine noncompliance and drug use. The patient presented to the emergency room with desire for self mutilation. Patient's vital signs have been stable. Labs are stable. Is currently awaiting psychiatric evaluation. 04/09/18 11:09
[2018-04-09 12:23] VITALS: BP 115/65
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
[2018-04-09] MEDS ORDERED: LITHIUM CARBONATE 300 MG CAPSULE PO ONE (16:06)
[2018-04-09] MEDS ORDERED: ALPRAZOLAM 0.5 MG TABLET PO ONE (16:07)
[2018-04-09] MEDS ORDERED: BENZTROPINE MESYLATE 1 MG TABLET PO ONE (16:07)
[2018-04-09] MEDS ORDERED: ZIPRASIDONE HCL 40 MG CAPSULE PO ONE (16:07)
== END 2018-04-09 18:01 | disposition home or self-care (01) ==
LOC: ER 17:57
DX: R45.851 Suicidal ideations (principal); F12.10 Cannabis abuse, uncomplicated; F31.9 Bipolar disorder, unspecified; F22 Delusional disorders; R44.3 Hallucinations, unspecified; I10 Essential (primary) hypertension; Z91.19 Patient's noncompliance with other medical treatment and regimen
CPT/HCPCS: 93005; 99285; 36415; 80307 ×4; 80178; 85025; 80053; 81001; 93010; J3490 ×2

== ENCOUNTER 2019-12-07 05:49 | Emergency (ER) | payer SELFPAY ==
[2019-12-07 06:45] LABS: HEMATOCRIT 45.4 % (37.9-51.0); MEAN CORPUSCULAR HEMOGLOBIN 33.8 pg (27.0-33.4); MEAN CORPUSCULAR HGB CONC 35.2 g/dL (32.0-36.0); MEAN CORPUSCULAR VOLUME 96 fl (80-97); PLATELET COUNT 268 10^3/uL (150-450); RED BLOOD COUNT 4.73 10^6/uL (4.35-5.55); RED CELL DISTRIBUTION WIDTH 12.2 % (11.5-14.0); WHITE BLOOD COUNT 8.8 10^3/uL (4.0-10.5)
[2019-12-07 06:56] LABS: APPEARANCE,URINE CLEAR; BILIRUBIN,URINE NEGATIVE (NEGATIVE); COLOR,URINE YELLOW; GLUCOSE, URINE NEGATIVE (NEGATIVE); KETONES,URINE NEGATIVE (NEGATIVE); LEUKOCYTE ESTERASE,URINE NEGATIVE (NEGATIVE); NITRITE,URINE NEGATIVE (NEGATIVE); PROTEIN,URINE NEGATIVE (NEGATIVE); URINE SPECIFIC GRAVITY 1.023; UROBILINOGEN,URINE NEGATIVE mg/dL (<2.0)
[2019-12-07 07:08] LABS: ABSOLUTE LYMPHOCYTES# (MANUAL) 5.5 10^3/uL (0.5-4.7); ABSOLUTE MONOCYTES # (MANUAL) 0.4 10^3/uL (0.1-1.4); ALBUMIN 4.5 g/dL (3.5-5.0); ALCOHOL 196 mg/dL (NONE DETECTED); ALKALINE PHOSPHATASE 84 U/L (38-126); ANION GAP 10 (5-19); ASPARTATE AMINO TRANSFERASE 67 U/L (17-59); BAND NEUTROPHILS % (MANUAL) 2 % (3-5); BASOPHILS % (MANUAL) 0 % (0-2); BILIRUBIN,TOTAL 0.3 mg/dL (0.2-1.3); BLOOD UREA NITROGEN 15 mg/dL (7-20); CALCIUM 8.8 mg/dL (8.4-10.2); CARBON DIOXIDE 24 mmol/L (22-30); CHLORIDE 111 mmol/L (98-107); EOSINOPHILS % (MANUAL) 3 % (0-6); GLUCOSE 87 mg/dL (75-110); LYMPHOCYTES % (MANUAL) 63 % (13-45); MONOCYTES % (MANUAL) 5 % (3-13); POTASSIUM 4.1 mmol/L (3.6-5.0); SEGMENTED NEUTROPHILS % (MAN) 27 % (42-78); TOTAL CELLS COUNTED 100; TOTAL PROTEIN 7.1 g/dL (6.3-8.2)
[2019-12-07 07:09] LABS: PLATELET COMMENT ADEQUATE; RBC MORPHOLOGY COMMENT NORMO-CYTIC/CHROMIC
[2019-12-07 07:16] LABS: URINE AMPHETAMINES SCREEN NEGATIVE; URINE BARBITURATES SCREEN NEGATIVE; URINE METHADONE SCREEN NEGATIVE; URINE PHENCYCLIDINE SCREEN NEGATIVE
[2019-12-07 07:19] LABS: ACETAMINOPHEN < 10 ug/mL (10-30); SALICYLATE < 1.0 mg/dL (2.0-20.0)
[2019-12-07 07:20] LABS: URINE BENZODIAZEPINES SCREEN UNCONFIRMED POSITIVE; URINE COCAINE SCREEN UNCONFIRMED POSITIVE; URINE MARIJUANA (THC) SCREEN UNCONFIRMED POSITIVE
[2019-12-07] MEDS ORDERED: NORMAL SALINE 1000 ML 1,000 ML with POTASSIUM CHLORIDE 20 MEQ, MAGNESIUM SULFATE 8 MEQ,... IV PRN ×5 (08:00)
--- NOTE | 2019-12-07 08:17 | RADIOLOGY REPORT (SQ) ---
EXAM DESCRIPTION: CHEST SINGLE VIEW IMAGES COMPLETED DATE/TIME: 12/07/2019 7:48 am REASON FOR STUDY: chest pain COMPARISON: 03/21/2017 EXAM PARAMETERS: NUMBER OF VIEWS: One view. TECHNIQUE: Single frontal radiographic view of the chest acquired. RADIATION DOSE: NA LIMITATIONS: None. FINDINGS: LUNGS AND PLEURA: No opacities, masses or pneumothorax. No pleural effusion. MEDIASTINUM AND HILAR STRUCTURES: No masses. Contour normal. HEART AND VASCULAR STRUCTURES: Heart normal in size. Normal vasculature. BONES: No acute findings. HARDWARE: None in the chest. OTHER: No other significant finding. IMPRESSION: NO ACUTE RADIOGRAPHIC FINDING IN THE CHEST. TECHNICAL DOCUMENTATION: JOB ID: [id number] 2010 [employer]- All Rights Reserved Reading location - IP/workstation name: [email or web address]
--- NOTE | 2019-12-07 08:18 | RADIOLOGY REPORT (SQ) ---
EXAM DESCRIPTION: CT HEAD WITHOUT IMAGES COMPLETED DATE/TIME: 12/07/2019 7:51 am REASON FOR STUDY: altered mental status COMPARISON: 01/24/2017 TECHNIQUE: Axial images acquired through the brain without intravenous contrast. Images reviewed wi th bone, brain and subdural windows. Additional sagittal and coronal reconstructions were generated. Images stored on PACS. All CT scanners at this facility use dose modulation, iterative reconstruction, and/or weight based d osing when appropriate to reduce radiation dose to as low as reasonably achievable (ALARA). [facility]: Dose Right [facility]: CareDose [facility]: Dose Right [facility]: Teradose 4D [facility]: Smart [employer] RADIATION DOSE: CT Rad equipment meets quality standard of care and radiation dose reduction techniq ues were employed. CTDIvol: 53.2 mGy. DLP: 911 mGy-cm. mGy. LIMITATIONS: None. FINDINGS: VENTRICLES: Normal size and contour. CEREBRUM: No masses. No hemorrhage. No midline shift. No evidence for acute infarction. Normal gra y/white matter differentiation. No areas of low density in the white matter. CEREBELLUM: No masses. No hemorrhage. No alteration of density. No evidence for acute infarction. EXTRAAXIAL SPACES: No fluid collections. No masses. ORBITS AND GLOBE: No intra- or extraconal masses. Normal contour of globe without masses. CALVARIUM: No fracture. PARANASAL SINUSES: Chronic maxillary and ethmoid sinus disease. SOFT TISSUES: No mass or hematoma. OTHER: No other significant finding. IMPRESSION: NORMAL BRAIN CT WITHOUT CONTRAST. EVIDENCE OF ACUTE STROKE: NO. COMMENT: Quality ID # [id number]: Final reports with documentation of one or more dose reduction techniques (e.g., Automated exposure control, adjustment of the mA and/or kV according to patient size, use of iterative reconstruction technique) TECHNICAL DOCUMENTATION: JOB ID: [id number] 2010 [employer]- All Rights Reserved Reading location - IP/workstation name: [email or web address]
--- NOTE | 2019-12-07 09:57 | EKG REPORT ---
SEVERITY:- BORDERLINE ECG - SINUS RHYTHM BORDERLINE PROLONGED QT INTERVAL : Confirmed by: Demian Johnson MD 07-Dec-2019 09:56:38
[2019-12-07 16:09] VITALS: BP 134/86
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
--- NOTE | 2019-12-09 20:32 | PSYCHOLOGICAL NOTE ---
Psych Note - Psych Note Date seen by psych provider: 12/07/19 Time seen by psych provider: 11:81 - [id number]. Again Later after reviewed Evi. 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 Medical documentation noted while patient was in the lobby waiting to get a room he took a medication bottle out and took medication he said was Valium that he is prescribed. UDS was positive for Benzodiazepines, Cocaine, Cannabis and Serum Alcohol Level was 196. He told medical staff he had 8 beers last night (said was the first alcohol he has had since [facility] release) and smoked weed. He denied suicidal ideation but stated he didn't know why he was here, said he's h ad multiple losses (Spouse, Child) and remorse for screwing up and making his family hate him. Patient identified "I need to get back on medication." He identified he just got out of [facility] Sunday after serving 4 months for Probation Violation (was on probation for assault). He acknowledged "I did the coke on the bus ride from [facility] to here and has smoked a little bit of weed." That was his first substance use. He stated he wants "to try to be clean." he reported being prescribed the Valium he took in the ED lobby when he first arrived. Patient denied suicidal and homicidal ideation. He denied being linked to a local provider. This clinician looked up patient's medication [facility] via his pharmacy on record: he filled Celexa 20MG daily and Valium 10MG twice a day (15 day supply) on 12/03/2019. He was confronted about this and instructed he should be taking his medications as directed and avoiding drugs/alcohol. Chart review revealed patient is well known to the ED and the Behavioral Health team. He was seen 04/08/2018 where he said he had been off medication for 4 days, had diagnoses of Bipolar/Schizophrenia/Polysubstance Use, UDS was positive for Barbiturates/Amphetamine/Benzodiazepines/Cannabis, and his medications were adjusted (Tanaina increased to 300MG in the morning and 600MG at night/Continued Geodon 40MG twice a day/Added Cogentin 1MG twice a day/stopped all other home medications, he was supposed to go to a dual diagnosis facility in [place]. On 04/07/2018 patient presented to ED for medication refill (said he was on Geodon, Tanaina, Xanax, Adderall, Prozac, Trazodone, Lisinopril). On 03/22/2018 patient presented for medication refill. Patient was seen 02/03/2017 for possible depression, 01/24/2017 for Polysubstance use/altered mental status and on 01/23/2017 for altered mental status. Patient was alert and oriented to self, person, place, time and situation. Mood was euthymic with congruent affect. He denied current suicidal and homicidal ideation. Patient did not appear to be responding to internal stimuli as evidenced by fair eye contact and answering questions appropriately when addressed. Thought processes were linear and organized. Conversational speech was within normal limits for rate, tone and prosody. Intellectual abilities are estimated to be average. Insight, judgment and impulse control were fair as evidenced by having time to sleep/rest and sober up. Clinical Presentation: Polysubstance use with intoxication (alcohol, cocaine, cannabis) Confused and Disoriented Medication refill Diagnosis: History of Polysubstance Use and Schizoaffective Disorder Impression/Plan: Patient is cleared from acute psychiatric services. He denied suicidal and homicidal ideation. There was no observed psychosis. He had been sleeping off his polysubstance intoxication and had time to sober up. He maintained he wanted medications that he was not getting in [facility] (just got out on Sunday after 4 month duration). Patient has a history of utilizing the ED for medication refills so needs to establish services with a local provider as it is not appropriate to get medication refills from the ED all the time. Also he did get prescriptions of Celexa and Valium on 12/03/2019 so was not being truthful about getting medications in [facility]. Patient started using drugs on the bus ride from [facility] to [place] (he reported using cocaine on the bus and smoking weed). He stated he wanted to try to be clean but [facility] was full. Patient was encouraged to take his two prescribed medications as directed and abstain from the use of substances/alcohol. He was provided an outpatient mental health resource sheet which highlighted both [facility] numbers for crisis/talk therapy/linkage to other services and supports, documented walk in time for [facility] and [facility] and listed contact information for [facility] (also documented he could call or walk in later and tomorrow to inquire about bed availability). He was informed he needed to establish services with a local provider for ongoing professional care and medication management. Consulted with Dr. Jaramillo regarding the management and care of patient. ED Physician in agreement with recommendations.
== END 2019-12-07 16:36 ==
LOC: ER 05:49
DX: F10.129 Alcohol abuse with intoxication, unspecified (principal); Y90.6 Blood alcohol level of 120-199 mg/100 ml; F14.10 Cocaine abuse, uncomplicated; F12.10 Cannabis abuse, uncomplicated; F17.210 Nicotine dependence, cigarettes, uncomplicated; F19.10 Other psychoactive substance abuse, uncomplicated; R74.0 Nonspecific elevation of levels of transaminase and lactic acid dehydrogenase [LDH]; I10 Essential (primary) hypertension; Z59.0 Homelessness
CPT/HCPCS: 93005; 99285; 96365; 96366; 36415; 80307 ×4; 85025; 80053; 81001; 84484; 71045; 70450; 93010; J3475; J3480; J3411; J7030; J3490

== ENCOUNTER 2019-12-15 16:32 | Emergency (ER) | payer SELFPAY ==
--- NOTE | 2019-12-15 18:17 | ER Document Report ---
ED General - General Chief Complaint: Alcohol Withdrawl Stated Complaint: POSSIBLE DETOX Time Seen by Provider: 12/15/19 18:17 Mode of Arrival: Ambulatory Information source: Patient Notes: 12/15/19 18:09 - ED Nursing Note by REDD VELAZQUEZ Num: [id number] : 1990 Patient Age: 29 patient ambulatory, states he is here to detox from alcohol. patient refuses to end phone call during triage. patient states he drinks 12-18 beers per day. patient states his last drink was yesterday. patient denies withdrawal seizures, breaths e/u, nad my notes 29-year-old male who is [place] in origin and speaks good Portuguese advises he was out in the yard today getting a lemus and drinking beer yesterday but he stopped over the last 24 hours. Usually drinks whiskey wine or beer 18 cans a day. He was just in rehab around 2 weeks ago. He advises he wants to go into rehab again. He is now tachycardic and having some jitters. He advised "he might want some Ativan and some fluids." Patient denies any physical problems except for some nausea today. He denies any skin lesions but does have cottonmouth with dry tongue and white mucus. He does not have the beriberi appearance at this time. Patient is wearing sunglasses and is in no ac [place] distress at this time in triage. I saw this patient in triage bed #2. He advised a staff member that he would like to blow this "fucking place up." I spoke to Dr. Jaramillo about this fellow and she advises she knows him well and he may go home after being evaluated medically. He usually is not suicidal or homicidal ideation. See Dr. Krishnamurthy's note from his last ER visit on 06 December. This patient was just released from [facility] after a 4-month stay and has been taking alcohol cocaine benzos marijuana. TRAVEL OUTSIDE OF THE [place] IN LAST 30 DAYS: No - HPI Onset: This morning Onset/Duration: Gradual, Persistent, Worse Quality of pain: No pain Severity: Moderate Pain Level: 2 Associated symptoms: Nausea. denies: Body/muscle aches, Chest pain, Chills, Drooling, Hoarseness, Hurts to breath, Vomiting, Rhinnorhea, Sore throat, Weakness Exacerbated by: Walking Relieved by: Denies Similar symptoms previously: Yes Recently seen / treated by doctor: Yes - Related Data Allergies/Adverse Reactions: No Known Allergies Allergy (Verified 12/07/19 06:09) Home Medications: lisinopril, celexa Past Medical History - General Information source: Patient - Social History Smoking Status: Current Every Day Smoker Cigarette use (# per day): Yes Chew tobacco use (# tins/day): No Smoking Education Provided: Yes Frequency of alcohol use: Heavy Drug Abuse: Marijuana, Methamphetamine Family History: Reviewed & Not Pertinent Patient has suicidal ideation: No Patient has homicidal ideation: No - Past Medical History Cardiac Medical History: Reports: Hx Hypertension Renal/ Medical History: Denies: Hx Peritoneal Dialysis Psychiatric Medical History: Reports: Hx Bipolar Disorder, Hx Schizophrenia Past Surgical History: Reports: Hx Oral Surgery - wisdom teeth, Hx Orthopedic Surgery - right hand - Immunizations Hx Diphtheria, Pertussis, Tetanus Vaccination: Yes Review of Systems - Review of Systems Constitutional: See HPI, Weakness EENT: No symptoms reported, Other - dry mouth Cardiovascular: See HPI, Heart racing, Lightheaded Respiratory: No symptoms reported Gastrointestinal: See HPI, Nausea Genitourinary: No symptoms reported Male Genitourinary: No symptoms reported Musculoskeletal: No symptoms reported Skin: No symptoms reported Hematologic/Lymphatic: No symptoms reported Neurological/Psychological: No symptoms reported Physical Exam - Vital signs Vitals: Temp Pulse Resp BP Pulse Ox 98.4 F 134 H 16 152/101 H 96 12/15/19 16:45 12/15/19 16:45 12/15/19 16:45 12/15/19 16:45 12/15/19 16:45 Interpretation: Hypertensive, Tachycardic - General General appearance: Alert - HEENT Head: Normocephalic, Atraumatic Eyes: Normal Pupils: PERRL Sinus: Normal Nasal: Normal Mouth/Lips: Normal Mucous membranes: Dry Pharynx: Normal Neck: Normal - Respiratory Respiratory status: No respiratory distress Chest status: Nontender Breath sounds: Normal Chest palpation: Normal - Cardiovascular Rhythm: Tachycardia Murmur: No - Abdominal Inspection: Normal Distension: No distension Bowel sounds: Normal Tenderness: Nontender Organomegaly: No organomegaly - Rectal Hemorrhoids: Other - deferred - Genitourinary Scrotum: Other - deferred - Back Back: Normal - Extremities General upper extremity: Normal inspection, Nontender, Normal color, Normal ROM, Normal temperature General lower extremity: Normal inspection, Nontender, Normal color, Normal ROM, Normal temperature, Normal weight bearing. No: Rosalva's sign - Neurological Neuro grossly intact: Yes Cognition: Normal Orientation: AAOx4 [place] Coma Scale Eye Opening: Spontaneous [place] Coma Scale Verbal: Oriented [place] Coma Scale Motor: Obeys Commands Gris Coma Scale Total: 15 Speech: Normal Motor strength normal: LUE, RUE, LLE, RLE Sensory: Normal - Psychological Associated symptoms: Anxious - Skin Skin Temperature: Warm Skin Moisture: Dry Course - Vital Signs Vital signs: Temp Pulse Resp BP Pulse Ox 98.4 F 134 H 16 152/101 H 96 12/15/19 16:45 12/15/19 16:45 12/15/19 16:45 12/15/19 16:45 12/15/19 16:45 - Laboratory Result Diagrams: 12/15/19 19:50 12/15/19 19:50 Laboratory results interpreted by me: 12/15/19 12/15/19 19:50 19:50 WBC 10.8 H MCV 98 H MCH 33.5 H Chloride 97 L Carbon Dioxide 32 H BUN 32 H Magnesium 2.6 H AST 213 H ALT 135 H Total Protein 8.5 H Albumin 5.1 H Critical Care Note - Critical Care Note Total time excluding time spent on procedures (mins): 60 Comments: I spoke with Dr. Cooper Jaramillo about this patient and she advises he is a chronic alcoholic and patient should be sent home on after medication. It is thought he has a home situation problem. Also see Dr. Krishnamurthy's note about 06 December admission. Patient requested a Percocet for low back pain and when he was given 5 mg actually wanted 10 mg and he knew the difference. Patient is suspected to be drug-seeking behavior with a homelessness type situation. He also is tachycardic but his heart rate dropped after taking Percocet and IV fluids. Discharge - Discharge Clinical Impression: Alcohol withdrawal Qualifiers: Complication of substance-induced condition: uncomplicated Qualified Code(s): F10.230 - Alcohol dependence with withdrawal, uncomplicated Condition: Good Disposition: HOME, SELF-CARE Additional Instructions: Follow-up with personal doctor return to ER as needed take medicines as directed encourage fluids and stop drinking alcohol Prescriptions: Chlordiazepoxide HCl 10 mg PO QHS #5 capsule
--- NOTE | 2019-12-15 18:33 | ER Document Report ---
ED Medical Screen (RME) - General Chief Complaint: Alcohol Withdrawl Stated Complaint: POSSIBLE DETOX Time Seen by Provider: 12/15/19 18:17 Mode of Arrival: Ambulatory Notes: 29-year-old male with past medical history of hypertension and depression presenting today for alcohol withdrawal. States he does desire treatment again at [facility] for alcohol withdrawal. Was at [facility] for alcohol withdraw 2 years ago. Last alcohol use was yesterday where he drank 12 beers. Typically drinks 12 beers a day. Takes Celexa and lisinopril. Reports occasional marijuana use. Last meth use was 4 days ago. Denies any fevers, chills, shortness of breath or additional symptoms. I have greeted and performed a rapid initial assessment of this patient. A comprehesive ED assessment and evaluation of this patient, analysis of test re sults and completion of the medical decision-making process will be conducted by additional ED providers. TRAVEL OUTSIDE OF THE [place] IN LAST 30 DAYS: No - Related Data Allergies/Adverse Reactions: No Known Allergies Allergy (Verified 12/07/19 06:09) Home Medications: lisinopril, celexa Past Medical History - Social History Frequency of alcohol use: Heavy Drug Abuse: Marijuana, Methamphetamine - Past Medical History Cardiac Medical History: Reports: Hx Hypertension Renal/ Medical History: Denies: Hx Peritoneal Dialysis Psychiatric Medical History: Reports: Hx Bipolar Disorder, Hx Schizophrenia Past Surgical History: Reports: Hx Oral Surgery - wisdom teeth, Hx Orthopedic Surgery - right hand - Immunizations Hx Diphtheria, Pertussis, Tetanus Vaccination: Yes Physical Exam - Vital signs Vitals: Temp Pulse Resp BP Pulse Ox 98.4 F 134 H 16 152/101 H 96 12/15/19 16:45 12/15/19 16:45 12/15/19 16:45 12/15/19 16:45 12/15/19 16:45 Course - Vital Signs Vital signs: Temp Pulse Resp BP Pulse Ox 98.4 F 134 H 16 152/101 H 96 12/15/19 16:45 12/15/19 16:45 12/15/19 16:45 12/15/19 16:45 12/15/19 16:45
[2019-12-15] MEDS ORDERED: NORMAL SALINE 1000 ML 1,000 ML IV ONE ×2 (18:37→23:30)
[2019-12-15] MEDS ORDERED: LORAZEPAM INJ 2 MG/1 ML VIAL IV ONE ×2 (19:05→23:30)
[2019-12-15] MEDS ORDERED: THIAMINE HCL 100 MG, FOLIC ACID 1 MG in NORMAL SALINE 250 ML IV ONE ×2 (19:10→23:30)
[2019-12-15] MEDS ORDERED: MAGNESIUM SULFATE/D5W 1 GM/100 ML RTUPB IV ONE ×2 (19:10→23:30)
[2019-12-15 20:51] LABS: ALBUMIN 5.1 g/dL (3.5-5.0); ALKALINE PHOSPHATASE 76 U/L (38-126); ANION GAP 10 (5-19); ASPARTATE AMINO TRANSFERASE 213 U/L (17-59); BILIRUBIN,DIRECT 0.2 mg/dL (0.0-0.4); BILIRUBIN,TOTAL 1.1 mg/dL (0.2-1.3); BLOOD UREA NITROGEN 32 mg/dL (7-20); CALCIUM 10.1 mg/dL (8.4-10.2); CARBON DIOXIDE 32 mmol/L (22-30); CHLORIDE 97 mmol/L (98-107); GLUCOSE 103 mg/dL (75-110); POTASSIUM 4.6 mmol/L (3.6-5.0); TOTAL PROTEIN 8.5 g/dL (6.3-8.2)
[2019-12-15 23:56] LABS: ABSOLUTE EOSINOPHILS # (AUTO) 0.1 10^3/uL (0.0-0.6); ABSOLUTE LYMPHOCYTES (AUTO) 3.6 10^3/uL (0.5-4.7); BASOPHILS % (AUTO) 0.5 % (0-2); EOSINOPHILS % (AUTO) 0.9 % (0-6); HEMATOCRIT 47.6 % (37.9-51.0); HEMOGLOBIN 16.4 g/dL (13.5-17.0); LYMPHOCYTES % (AUTO) 33.6 % (13-45); MEAN CORPUSCULAR HEMOGLOBIN 33.5 pg (27.0-33.4); MEAN CORPUSCULAR HGB CONC 34.4 g/dL (32.0-36.0); MEAN CORPUSCULAR VOLUME 98 fl (80-97); MONOCYTES % (AUTO) 9.5 % (3-13); PLATELET COUNT 312 10^3/uL (150-450); RED BLOOD COUNT 4.88 10^6/uL (4.35-5.55); RED CELL DISTRIBUTION WIDTH 12.7 % (11.5-14.0); SEGMENTED NEUTROPHILS % (AUTO) 55.5 % (42-78); TOTAL CELLS COUNTED % (AUTO) 100 %; WHITE BLOOD COUNT 10.8 10^3/uL (4.0-10.5)
--- NOTE | 2019-12-16 01:04 | EKG REPORT ---
SEVERITY:- NORMAL ECG - SINUS RHYTHM : Confirmed by: Lisa Gaspar MD 16-Dec-2019 01:03:46
[2019-12-16] MEDS ORDERED: NORMAL SALINE 1000 ML 1,000 ML IV ONE (01:38)
[2019-12-16] MEDS ORDERED: OXYCODONE-ACETAMINOPHEN 5-325 MG TABLET PO ONE (01:38)
[2019-12-16 03:55] VITALS: BP 138/83
== END 2019-12-16 03:55 | disposition home or self-care (01) ==
LOC: ER 16:32
DX: F10.230 Alcohol dependence with withdrawal, uncomplicated (principal); R00.0 Tachycardia, unspecified; R68.2 Dry mouth, unspecified; R11.0 Nausea; R42 Dizziness and giddiness; I10 Essential (primary) hypertension; F12.10 Cannabis abuse, uncomplicated; F15.10 Other stimulant abuse, uncomplicated; F17.210 Nicotine dependence, cigarettes, uncomplicated; F31.9 Bipolar disorder, unspecified; Z79.899 Other long term (current) drug therapy
CPT/HCPCS: 93005; 99291; 96375; 96365; 36415; 80307; 83735; 85025; 80053; 93010; J3490; J2060; J3475; J3411; J7030; J7050

== ENCOUNTER 2019-12-16 19:29 | Emergency (ER) | payer SELFPAY ==
--- NOTE | 2019-12-16 20:40 | ER Document Report ---
ED Medical Screen (RME) - General Chief Complaint: Alcohol Withdrawl Stated Complaint: DETOX Time Seen by Provider: 12/16/19 20:35 Notes: Patient presents requesting detox for alcoholism. Patient complains of feeling mildly anxious. Patient reports drinking alcohol today (2, 4 loco's). Patient denies any suicidal homicidal ideation. Patient denies any other underlying medical problems. I have greeted and performed a rapid initial assessment of this patient. A comprehensive ED assessment and evaluation of the patient, analysis of test results and completion of the medical decision making process will be conducted by additional ED providers. TRAVEL OUTSIDE OF THE [place] IN LAST 30 DAYS: No - Related Data Allergies/Adverse Reactions: No Known Allergies Allergy (Verified 12/16/19 20:28) Past Medical History - Social History Frequency of alcohol use: Heavy Drug Abuse: None - Past Medical History Cardiac Medical History: Reports: Hx Hypertension Renal/ Medical History: Denies: Hx Peritoneal Dialysis Psychiatric Medical History: Reports: Hx Bipolar Disorder, Hx Schizophrenia Past Surgical History: Reports: Hx Oral Surgery - wisdom teeth, Hx Orthopedic Surgery - right hand - Immunizations Hx Diphtheria, Pertussis, Tetanus Vaccination: Yes Physical Exam - Vital signs Vitals: Temp Pulse Resp BP Pulse Ox 99.4 F 108 H 20 146/91 H 96 12/16/19 19:35 12/16/19 19:35 12/16/19 19:35 12/16/19 19:35 12/16/19 19:35 - General General appearance: Appears well, Alert In distress: None Notes: No tremor noted, patient awake alert and oriented Course - Vital Signs Vital signs: Temp Pulse Resp BP Pulse Ox 99.4 F 108 H 20 146/91 H 96 12/16/19 20:28 12/16/19 19:35 12/16/19 19:35 12/16/19 19:35 12/16/19 19:35
[2019-12-16 22:25] LABS: ALBUMIN 4.5 g/dL (3.5-5.0); ALKALINE PHOSPHATASE 74 U/L (38-126); ANION GAP 7 (5-19); ASPARTATE AMINO TRANSFERASE 155 U/L (17-59); BILIRUBIN,TOTAL 0.4 mg/dL (0.2-1.3); BLOOD UREA NITROGEN 15 mg/dL (7-20); CALCIUM 9.3 mg/dL (8.4-10.2); CARBON DIOXIDE 29 mmol/L (22-30); CHLORIDE 102 mmol/L (98-107); GLUCOSE 102 mg/dL (75-110); POTASSIUM 3.6 mmol/L (3.6-5.0); TOTAL PROTEIN 7.5 g/dL (6.3-8.2)
[2019-12-17] MEDS ORDERED: NALOXONE HCL INJ/PF 0.4 MG/1 ML SDV IV ONE ×2 (01:45→02:03)
[2019-12-17 01:46] LABS: ABSOLUTE EOSINOPHILS # (AUTO) 0.2 10^3/uL (0.0-0.6); ABSOLUTE LYMPHOCYTES (AUTO) 3.3 10^3/uL (0.5-4.7); ABSOLUTE MONOCYTES (AUTO) 0.7 10^3/uL (0.1-1.4); ABSOLUTE NEUT (AUTO) 3.3 10^3/uL (1.7-8.2); BASOPHILS % (AUTO) 0.3 % (0-2); EOSINOPHILS % (AUTO) 2.6 % (0-6); HEMATOCRIT 41.9 % (37.9-51.0); LYMPHOCYTES % (AUTO) 43.6 % (13-45); MEAN CORPUSCULAR HEMOGLOBIN 34.1 pg (27.0-33.4); MEAN CORPUSCULAR HGB CONC 35.4 g/dL (32.0-36.0); MEAN CORPUSCULAR VOLUME 96 fl (80-97); MONOCYTES % (AUTO) 9.9 % (3-13); PLATELET COUNT 266 10^3/uL (150-450); RED BLOOD COUNT 4.35 10^6/uL (4.35-5.55); RED CELL DISTRIBUTION WIDTH 12.5 % (11.5-14.0); SEGMENTED NEUTROPHILS % (AUTO) 43.6 % (42-78); TOTAL CELLS COUNTED % (AUTO) 100 %; WHITE BLOOD COUNT 7.5 10^3/uL (4.0-10.5)
[2019-12-17] MEDS ORDERED: NORMAL SALINE 1000 ML 1,000 ML IV ONE ×2 (01:46)
[2019-12-17 01:54] LABS: HEMOGLOBIN 14.8 g/dL (13.5-17.0)
--- NOTE | 2019-12-17 02:00 | ER Document Report ---
ED Substance Abuse / Acc. OD <NELIA ADAMES JR - Last Filed: 12/17/19 02:14> - General Mode of Arrival: Wheelchair Information source: [facility] Records TRAVEL OUTSIDE OF THE [place] IN LAST 30 DAYS: No - HPI Patient complains to provider of: Alcohol abuse, Drug abuse Onset: This evening Onset/Duration: Gradual Quality of pain: No pain Severity: None Pain Level: Denies Overdose of: Other - Patient states he does not remember what he took. He remembers being in the emergency room and arrived to his car but does not know what he took Associated Symptoms: Other - Patient was unresponsive before Narcan 0.42 and Romazicon 3 cc Similar symptoms previously: Yes Recently seen / treated by doctor: Yes <ANTWAN BUSTILLO - Last Filed: 12/17/19 08:34> - General Chief Complaint: Alcohol Withdrawl Stated Complaint: DETOX Time Seen by Provider: 12/16/19 20:35 Notes: Male presented to ED for alcohol and drug abuse. He was seen earlier in triage state he was very anxious and that he reportedly drinking 2-4 locos and was very anxious when he first came in. He denied any suicidal ideations. According to the staff in the triage area he went out to his car and came back to the emergency room and was shortly afterwards he was unresponsive. Nurses were able to use draw blood and put IV line and with no physical response. He does respond to dental rub. He did flinch to catheter to get his drug screen. He will be given Narcan at this time IV fluids and he will be monitored. He has been seen for the last couple days in the emergency room for alcohol intoxication. Patient has been treated with 0.4 of Narcan twice and 3 cc of Romazicon he is now alert and oriented answering questions. Does not remember what he took. His pupils were completely dilated 8 or 9 mm before the Romazicon now they are back to 3 [address] I did have Dr[address] adames come in and assist with this treatment. (ANTWAN BUSTILLO) - Related Data Allergies/Adverse Reactions: No Known Allergies Allergy (Verified 12/16/19 20:28) Past Medical History - General Information source: Patient - Social History Smoking Status: Current Every Day Smoker Frequency of alcohol use: Heavy Drug Abuse: Marijuana, Methamphetamine, Prescription drugs Family History: Reviewed & Not Pertinent Patient has suicidal ideation: No Patient has homicidal ideation: No - Past Medical History Cardiac Medical History: Reports: Hx Hypertension Pulmonary Medical History: Reports: None EENT Medical History: Reports: None Neurological Medical History: Reports: None Endocrine Medical History: Reports: None Renal/ Medical History: Reports: None Malignancy Medical History: Reports None GI Medical History: Reports: None Musculoskeletal Medical History: Reports None Skin Medical History: Reports None Psychiatric Medical History: Reports: Hx Bipolar Disorder, Hx Schizophrenia Traumatic Medical History: Reports: None Infectious Medical History: Reports: None Past Surgical History: Reports: Hx Oral Surgery - wisdom teeth, Hx Orthopedic Surgery - right hand - Immunizations Hx Diphtheria, Pertussis, Tetanus Vaccination: Yes <ANTWAN BUSTILLO - Last Filed: 12/17/19 08:34> Review of Systems - Review of Systems Constitutional: Other EENT: No symptoms reported Cardiovascular: No symptoms reported Respiratory: No symptoms reported Gastrointestinal: No symptoms reported Genitourinary: No symptoms reported Male Genitourinary: No symptoms reported Musculoskeletal: No symptoms reported Skin: No symptoms reported Hematologic/Lymphatic: No symptoms reported Neurological/Psychological: Other - Patient was nonresponsive but is now awake alert answering questions appropriately -: Yes All other systems reviewed and negative <ANTWAN BUSTILLO - Last Filed: 12/17/19 08:34> Physical Exam - Vital signs Interpretation: Normal - General General appearance: Appears well, Alert - HEENT Head: Normocephalic, Atraumatic Eyes: Normal Pupils: PERRL - Pupils were 8 to 9 mm before Narcan and Romazicon now they are back down to 3 mm responsive Ears: Normal External canal: Normal Tympanic membrane: Normal Sinus: Normal Nasal: Normal Mouth/Lips: Normal Mucous membranes: Normal Pharynx: Normal Neck: Normal - Respiratory Respiratory status: No respiratory distress Chest status: Nontender Breath sounds: Normal Chest palpation: Normal - Cardiovascular Rhythm: Regular Heart sounds: Normal auscultation Murmur: No - Abdominal Inspection: Normal Distension: No distension Bowel sounds: Normal Tenderness: Nontender Organomegaly: No organomegaly - Back Back: Normal, Nontender - Extremities General upper extremity: Normal inspection, Nontender, Normal color, Normal ROM, Normal temperature General lower extremity: Normal inspection, Nontender, Normal color, Normal ROM, Normal temperature, Normal weight bearing. 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 Babinski reflex: Normal (flexor plantar) Sensory: Normal - Psychological Associated symptoms: Normal affect, Normal mood - Skin Skin Temperature: Warm Skin Moisture: Dry Skin Color: Normal <ANTWAN BUSTILLO - Last Filed: 12/17/19 08:34> - Vital signs Vitals: Temp Pulse Resp BP Pulse Ox 99.4 F 108 H 20 146/91 H 96 12/16/19 19:35 12/16/19 19:35 12/16/19 19:35 12/16/19 19:35 12/16/19 19:35 Course - Laboratory Result Diagrams: 12/17/19 01:31 12/16/19 21:44 <NELIA ADAMES JR - Last Filed: 12/17/19 02:14> - Laboratory Result Diagrams: 12/17/19 01:31 12/16/19 21:44 <ANTWAN BUSTILLO - Last Filed: 12/17/19 08:34> - Re-evaluation Re-evalutation: 12/17/19 07:06 Patient has been easily arousable all night since being treated with Narcan and Romazicon earlier. He is alert oriented able to answer all questions at this time. He states he has an appointment at [facility] for detox at 8:00. I did call [facility] they stated that I would need to call back when dayshift arrived in about 10-15 minutes to find out if they had a bed available for him. He has been informed of what happened last night. He states he does not remember any of it. He states he must of gone outside and taken some from his car. He states he is on benzos. He states he was concerned that he might go into DTs. He has had no tremors and is in no discomfort at this time. I have consulted Dr Abrams and he did go in and speak with the patient. He states [facility] has room he can be di scharged to there otherwise he can be discharged home to follow-up with detox. Patient was instructed to please not take so many benzos again that he could very easily last night. Patient states he understands this. 12/17/19 08:32 [facility] was called just before 7:00 and they told me to call again after the dayshift arrived. I did we call about 7:20. I did state that they had a room that was available and they would reserve him that when I discharged the patient to let them know that he was leaving the ER so that they could open the gate to let him in. The nurse did call [facility] when the patient was discharged to let them know he was on the way over. (ANTWAN BUSTILLO) - Vital Signs Vital signs: Temp Pulse Resp BP Pulse Ox 98.4 F 91 21 H 126/87 H 100 12/16/19 22:36 12/16/19 22:36 12/17/19 07:01 12/17/19 07:01 12/17/19 07:01 - Laboratory Laboratory results interpreted by me: 12/16/19 12/17/19 12/17/19 21:44 01:31 01:54 MCH 34.1 H AST 155 H ALT 116 H Urine Urobilinogen 4.0 H Critical Care Note - Critical Care Note Total time excluding time spent on procedures (mins): 60 <NELIA ADAMES JR - Last Filed: 12/17/19 02:14> - Critical Care Note Comments: I was called to bedside by Dodie VALERIO because patient has sonorous respirations. Patient went to his car and when he returned he was quite somnolent with dilated pupils. He was given Narcan 0.42 as well as Romazicon 3 mL and patient began to respond. I attempted a nasal trumpet but he grabbed my wrist and prior to the Romazicon continued to have sonorous respirations. His vital signs have continued to be within normal limits. He began to talk to Dodie by 0 212. (NELIA ADAMES JR) Discharge <NELIA ADAMES JR - Last Filed: 12/17/19 02:14> <ANTWAN BUSTILLO - Last Filed: 12/17/19 08:34> - Discharge Clinical Impression: Drug overdose Qualifiers: Encounter type: initial encounter Injury intent: undetermined intent Qualified Code(s): T50.904A - Poisoning by unspecified drugs, medicaments and biological substances, undetermined, initial encounter Condition: Stable Disposition: HOME, SELF-CARE Additional Instructions: You were seen last night for request for alcohol intoxication. Your alcohol level was 70 at the time you came in. You waiting in the ER at some time you took some kind of medication. You were nonresponsive after taking this medication and you were treated with Romazicon and Narcan. You have been alert and able to answer questions since this time. Have spoken with the staff at [facility] they have a room for you you are to go [facility] to the [facility] they will open the gate and let you in. Please if they are not at the gait call [phone] and let them know you were at the gait. These go straight from the emergency room to [facility] do not take any medication in between.
[2019-12-17] MEDS ORDERED: FLUMAZENIL INJ 0.5 MG/5 ML VIAL IV ONE (02:03)
[2019-12-17 02:13] LABS: APPEARANCE,URINE CLEAR; BILIRUBIN,URINE NEGATIVE (NEGATIVE); COLOR,URINE YELLOW; GLUCOSE, URINE NEGATIVE (NEGATIVE); KETONES,URINE NEGATIVE (NEGATIVE); LEUKOCYTE ESTERASE,URINE NEGATIVE (NEGATIVE); NITRITE,URINE NEGATIVE (NEGATIVE); PROTEIN,URINE NEGATIVE (NEGATIVE); URINE SPECIFIC GRAVITY 1.025
--- NOTE | 2019-12-17 02:25 | EKG REPORT ---
SEVERITY:- NORMAL ECG - SINUS RHYTHM : Confirmed by: Lisa Gaspar MD 17-Dec-2019 02:25:09
[2019-12-17 02:27] LABS: URINE AMPHETAMINES SCREEN NEGATIVE; URINE BARBITURATES SCREEN NEGATIVE; URINE COCAINE SCREEN NEGATIVE; URINE METHADONE SCREEN NEGATIVE; URINE PHENCYCLIDINE SCREEN NEGATIVE
[2019-12-17 02:49] LABS: URINE BENZODIAZEPINES SCREEN UNCONFIRMED POSITIVE; URINE MARIJUANA (THC) SCREEN UNCONFIRMED POSITIVE
--- NOTE | 2019-12-17 04:32 | RADIOLOGY REPORT (SQ) ---
INDICATION: Nonresponsive. COMPARISON: December 07, 2019 CORRELATION: None TECHNIQUE: Noncontrast spiral axial CT images were obtained from the skull base to vertex. This exam was performed according to our departmental dose-optimization program, which includes automated exposure control, adjustment of the mA and/or kV according to patient size and/or use of iterative reconstruction techniques. FINDINGS: There is no evidence of acute intracranial hemorrhage, midline shift, mass effect or mass lesion. Dowling-white differentiation is normal. There is no evidence of acute large territory infarct. Ventricles and extracerebral spaces are within normal limits, for age. The visualized paranasal sinuses demonstrate retention cyst in maxillary sinuses. Mild mucosal thickening within a few ethmoid air cells.. The orbits and eyeballs are unremarkable. The mastoid air cells are clear. Skull base and calvarium appear intact. IMPRESSION: No acute intracranial process is identified. The cause of the patient's mental status change is not identified on this examination.
[2019-12-17 07:28] VITALS: BP 126/87
== END 2019-12-17 07:48 | disposition home or self-care (01) ==
LOC: ER 19:29
DX: T50.904A Poisoning by unspecified drugs, medicaments and biological substances, undetermined, initial encounter (principal); F10.10 Alcohol abuse, uncomplicated; F19.10 Other psychoactive substance abuse, uncomplicated; F17.200 Nicotine dependence, unspecified, uncomplicated; I10 Essential (primary) hypertension
CPT/HCPCS: 93005; 99285; 96361; 96374; 96375; 36415; 82962; 80307 ×2; 85025; 80053; 81001; 70450; 93010; J3490; J2310; J7030